=== PATIENT | female | born 1940 | race Caucasian/White ===

== ENCOUNTER → 2017-10-02 08:39 | Outpatient (POV) | payer MEDICARE, SELFPAY ==
--- NOTE | 2017-10-02 10:00 | XR_ITS ---
XR chest 2V HISTORY: ITS.REASON: COPD ORDERING PHYSICIAN: Anil Adrian MD PATIENT AGE: 77 years COMPARISON: None available FINDINGS: Unremarkable cardiovascular structures. There are emphysematous changes with hyperlucency in the upper lobes. No lobar consolidation or collapse. There is mild lower thoracic scoliosis convex left. IMPRESSION: Moderate to severe emphysematous changes
[2017-10-02 10:01] LABS: Basophils % 0.6 % (0.1-2.0); Eosinophils # 0.2 K/mm3 (0.0-0.4); Eosinophils % 2.1 % (0.1-12.0); Hematocrit 37.5 % (37.0-47.0); Hemoglobin 11.2 g/dL (12.2-16.2); Lymphocytes # 2.1 K/mm3 (0.7-4.5); Lymphocytes % 27.8 K/mm3 (10-50); Mean Corpuscular Hemoglobin 24.2 pg (27.0-31.2); Mean Corpuscular Volume 80.5 fl (81-99); Mean Platelet Volume 7.1 fl (7.4-10.4); Monocytes # 0.5 K/mm3 (0.1-1.0); Monocytes % 6.4 % (1.7-9.3); Neutrophils # 4.7 K/mm3 (1.8-7.8); Platelet Count 217 K/mm3 (142-424); Red Blood Count 4.65 M/mm3 (4.20-5.40); Red Cell Distribution Width 15.7 % (11.5-17.5); White Blood Count 7.5 K/mm3 (4.8-10.8)
[2017-10-02 10:48] LABS: Alanine Aminotransferase 18 U/L (12-78); Albumin Level 3.5 gm/dL (3.4-5.0); Alkaline Phosphatase 166 U/L (46-116); Anion Gap 17.3 mEq/L (5-15); Aspartate Amino Transferase 11 U/L (15-37); Bilirubin,Total 0.2 mg/dL (0.2-1.0); Blood Urea Nitrogen 31 mg/dL (7-18); Calcium 8.9 mg/dL (8.5-10.1); Carbon Dioxide 22 mmol/L (21.0-32.0); Chloride 110 mmol/L (98-107); Creatinine,Serum 1.27 mg/dL (0.55-1.02); Estimated Glomerular Filt Rate 41 ml/min (>60); GFR (African American) 50 ML/MIN (>60); Globulin 3.4 gm/dl (1.3-3.2); Glucose 96 mg/dL (74-106); Potassium 4.3 mmoL/L (3.5-5.1); Sodium 145 mmol/L (136-145); Total Protein,Serum 6.9 gm/dL (6.4-8.2)
== END ==
PROVIDERS: Visit Provider Internal Medicine
DX: J43.1 Panlobular emphysema (principal); J96.10 Chronic respiratory failure, unspecified whether with hypoxia or hypercapnia
CPT/HCPCS: 36415; 71046; 80053; 85025

== ENCOUNTER → 2018-04-09 09:20 | Outpatient (POV) | payer MEDICARE, SELFPAY | PROVIDERS: Visit Provider Internal Medicine | DX: Z00.00 Encounter for general adult medical examination without abnormal findings (principal) ==

== ENCOUNTER → 2018-07-04 12:05 | Outpatient (CLI) | payer MEDICARE, SELFPAY ==
[2018-07-04 13:29] VITALS: BP 147/86; PULSE 95; PULSE 96; RESP 18; RESP 24; O2SAT 84; O2SAT 96
== END ==
PROVIDERS: PCP Family Medicine; Visit Provider Internal Medicine
DX: J44.9 Chronic obstructive pulmonary disease, unspecified (principal); J96.10 Chronic respiratory failure, unspecified whether with hypoxia or hypercapnia
CPT/HCPCS: 94618

== ENCOUNTER → 2018-09-03 15:17 | Outpatient (POV) | payer MEDICARE, SELFPAY ==
--- NOTE | 2018-09-03 17:09 | XR_ITS ---
XR chest 2V HISTORY: COPD, cough, shortness of air, history of smoking ITS.REASON: COPD ORDERING PHYSICIAN: Anil Adrian MD PATIENT AGE: 78 years COMPARISON: 10/02/2017 FINDINGS: Unremarkable cardiovascular structures. There are emphysematous changes with bullous change in the upper lobes right more severe than left along with fibrotic change in the right midlung. Chronic changes are present in the lower lobes with some increased density in the right lower lobe which may be due to superimposed pneumonia. Lower thoracic scoliosis convex left. IMPRESSION: Emphysema with bullous changes with possible superimposed pneumonia in the right lower lobe
[2018-09-03 20:02] LABS: Alanine Aminotransferase 16 U/L (12-78); Albumin Level 3.6 gm/dL (3.4-5.0); Albumin/Globulin Ratio 1.1 (1.1-1.8); Alkaline Phosphatase 128 U/L (46-116); Anion Gap 13.5 mEq/L (5-15); Aspartate Amino Transferase 7 U/L (15-37); Bilirubin,Total 0.3 mg/dL (0.2-1.0); Blood Urea Nitrogen 36 mg/dL (7-18); Calcium 9.2 mg/dL (8.5-10.1); Carbon Dioxide 27 mmol/L (21.0-32.0); Chloride 108 mmol/L (98-107); Creatinine,Serum 1.23 mg/dL (0.55-1.02); Estimated Glomerular Filt Rate 42 ml/min (>60); GFR (African American) 51 ML/MIN (>60); Globulin 3.4 gm/dl (1.3-3.2); Glucose 120 mg/dL (74-106); Potassium 4.5 mmoL/L (3.5-5.1); Sodium 144 mmol/L (136-145)
== END ==
PROVIDERS: Visit Provider Internal Medicine
DX: R07.9 Chest pain, unspecified (principal); J44.9 Chronic obstructive pulmonary disease, unspecified; J96.10 Chronic respiratory failure, unspecified whether with hypoxia or hypercapnia
CPT/HCPCS: 36415; 71046; 80053; 93005

== ENCOUNTER → 2018-09-06 07:26 | Outpatient (CLI) | payer MEDICARE, SELFPAY ==
[2018-09-06 08:23] VITALS: PULSE 74
[2018-09-06 08:45] VITALS: BP 148/81; PULSE 95; RESP 16; O2SAT 87
[2018-09-06 09:05] VITALS: BP 144/85; PULSE 113; RESP 22; O2SAT 96
== END ==
PROVIDERS: PCP Family Medicine; Visit Provider Internal Medicine
DX: J44.9 Chronic obstructive pulmonary disease, unspecified (principal); R06.02 Shortness of breath
CPT/HCPCS: 94060; 94618; 94640; 94726; 94729

== ENCOUNTER → 2018-10-11 10:23 | Outpatient (CLI) | payer MEDICARE, SELFPAY | PROVIDERS: PCP Family Medicine; Visit Provider Internal Medicine Cardiovascular Disease | DX: I27.20 Pulmonary hypertension, unspecified (principal); I72.9 Aneurysm of unspecified site; I77.0 Arteriovenous fistula, acquired; I97.89 Other postprocedural complications and disorders of the circulatory system, not elsewhere classified; J43.1 Panlobular emphysema; J96.10 Chronic respiratory failure, unspecified whether with hypoxia or hypercapnia; R07.9 Chest pain, unspecified; Z51.5 Encounter for palliative care; Z87.891 Personal history of nicotine dependence | CPT/HCPCS: 93926 ==

== ENCOUNTER → 2018-12-10 09:43 | Outpatient (POV) | payer MEDICARE, SELFPAY | PROVIDERS: Visit Provider Internal Medicine | DX: Z00.00 Encounter for general adult medical examination without abnormal findings (principal) ==

== ENCOUNTER 2018-12-10 10:21 | Observation (INO) ==
[2018-12-10 10:43] LABS: ABG Base Excess -0.6 mmol/L (-2.4-2.3); ABG Oxygen Saturation 97 % (90-100); ABG PCO2 38.3 mmhg (35.0-45.0); ABG PH 7.42 mmol/L (7.35-7.45); ABG PO2 88.9 mmhg (80-100); ABG TCO2 25.2 mmhg (23-27)
[2018-12-10 10:45] LABS: Basophils % 0.4 % (0.1-2.0); Eosinophils # 0.1 K/mm3 (0.0-0.4); Eosinophils % 0.5 % (0.1-12.0); Hematocrit 34.8 % (37.0-47.0); Hemoglobin 11.2 g/dL (12.2-16.2); Lymphocytes # 1.4 K/mm3 (0.7-4.5); Lymphocytes % 13.2 % (10-50); Mean Corpuscular HGB Conc 32.3 g/dL (31.8-35.4); Mean Corpuscular Hemoglobin 25.7 pg (27.0-31.2); Mean Corpuscular Volume 79.6 fl (81-99); Mean Platelet Volume 7.4 fl (7.4-10.4); Monocytes # 0.6 K/mm3 (0.1-1.0); Monocytes % 5.9 % (1.7-9.3); Neutrophils # 8.3 K/mm3 (1.8-7.8); Platelet Count 240 K/mm3 (142-424); Red Blood Count 4.37 M/mm3 (4.20-5.40); White Blood Count 10.4 K/mm3 (4.8-10.8)
--- NOTE | 2018-12-10 10:45 | Emergency Department Note ---
ED Disposition Clinical Impression: COPD exacerbation Disposition: Admitted as Observation Condition on Discharge: Fair - Critical Care Critical Care Time: No Attestation: On 12/10/18, the high probability of a clinically significant, sudden or life threatening deterioration of the following system(s) required my full and direct attention, intervention and personal management. The time I documented below is in addition to time spent performing reported procedures but includes the following listed in this critical care notation. Medical Decision Making - Dayo Inquiry Pt receiving controlled substance: No Vital Signs: 12/10/18 10:22 12/10/18 11:05 12/10/18 12:21 Temperature 98.2 F Temperature Source Oral Pulse Rate [Right Brachial] 112 H 100 H 94 H Respiratory Rate 18 Blood Pressure [Right Arm] 137/67 125/68 125/58 L Blood Pressure Mean [Right Arm] 90 87 80 Blood Pressure Source [Right Arm] Automatic Cuff Blood Pressure Position [Right Arm] Sitting 02 Sat by Pulse Oximetry 96 97 97 Oxygen Delivery Method Nasal Cannula Oxygen Flow Rate (LPM) 3 - Lab Data Lab Results 12/10/18 10:30: WBC 10.4, RBC 4.37, Hgb 11.2 L, Hct 34.8 L, MCV 79.6 L, MCH 25.7 L, MCHC 32.3, RDW 15.0, Plt Count 240, MPV 7.4, Neut % (Auto) 80.0, Lymph % (Auto) 13.2, [place] % (Auto) 5.9, Eos % (Auto) 0.5, Baso % (Auto) 0.4, Neut # (Auto) 8.3 H, Lymph # (Auto) 1.4, [place] # (Auto) 0.6, Eos # (Auto) 0.1, Baso # (Auto) 0.0 12/10/18 10:30: Sodium 144, Potassium 3.0 L, Chloride 106, Carbon Dioxide 26, Anion Gap 15.0, BUN 23 H, Creatinine 1.13 H, Estimated Creat Clear 46, Estimated GFR 47 L, Est GFR ( Amer) 56 L, Glucose 132 H, Calcium 8.9, Total Bilirubin 0.4, AST 9 L, ALT 20, Alkaline Phosphatase 117 H, Troponin I < 0.02, Total Protein 7.0, Albumin 3.0 L, Globulin 4.0 H, Albumin/Globulin Ratio 0.8 L 12/10/18 10:30: Lactate 2.0 12/10/18 10:30: D-Dimer 398 12/10/18 10:35: Specimen Source L brachial, O2 % 3lpm, ABG pH 7.42, ABG pCO2 38.3, ABG pO2 88.9, ABG HCO3 24.0, ABG Total CO2 25.2, ABG O2 Saturation 97, ABG Base Excess -0.6 Result diagrams: 12/10/18 10:30 12/10/18 10:30 Orders (Tests/Meds): ED MEDICATIONS Generic Name Dose Route Start Last Admin Trade Name Freq PRN Reason Stop Dose Admin Acetaminophen 650 mg 12/10/18 12:31 Acetaminophen 325mg Tab PO 01/09/19 12:30 Q4HP PRN As Needed for Fever or Pain Albuterol/Ipratropium 3 ml 12/10/18 14:00 Duoneb 3ml Neb IH 01/09/19 13:59 QIDRT ISR[place]EL Ceftriaxone Sodium 1 gm/ 50 mls @ 100 mls/hr 12/11/18 12:15 Sodium Chloride IV 12/24/18 12:14 Q24H [place] Protocol Methylprednisolone Sodium Succinate 80 mg 12/10/18 12:31 Solu-Medrol 125mg/2ml Vial IV 01/09/19 12:30 Q8H [place] Non-Formulary Medication 10 mg 12/11/18 09:00 Escitalopram Oxalate PO 01/10/19 08:59 DAILY [place] Non-Formulary Medication 75 mcg 12/11/18 09:00 Levothyroxine Sodium [Tirosint] PO 01/10/19 08:59 DAILY [place] Non-Formulary Medication 290 mcg 12/11/18 09:00 Linaclotide [Linzess] PO 01/10/19 08:59 DAILY [place] Non-Formulary Medication 20 mg 12/11/18 09:00 Omeprazole [Omeprazole 20mg Capsule] PO 01/10/19 08:59 DAILY [place] Non-Formulary Medication 500 mcg 12/11/18 09:00 Roflumilast [Daliresp] PO 01/10/19 08:59 DAILY [place] Non-Formulary Medication 8 mcg 12/10/18 21:00 Lubiprostone [Amitiza] PO 01/09/19 20:59 BID ISR[place]EL Spironolactone 25 mg 12/11/18 09:00 Aldactone 25mg Tablet PO 01/10/19 08:59 DAILY [place] Discontinued Medications Generic Name Dose Route Start Last Admin Trade Name Eusebio PRN Reason Stop Dose Admin Albuterol/Ipratropium 3 ml 12/10/18 14:00 Duoneb 3ml [facility] 01/09/19 13:59 QIDRT [place] Albuterol/Ipratropium 3 ml 12/10/18 11:14 12/10/18 11:14 Duoneb 3ml [facility] 12/10/18 11:15 3 ml ONCE ONE Administration Ceftriaxone Sodium 1 gm/ 50 mls @ 100 mls/hr 12/10/18 12:15 Sodium Chloride IV 12/24/18 12:14 Q24H [facility] Protocol Methylprednisolone Sodium Succinate 125 mg 12/10/18 11:03 12/10/18 11:13 Solu-Medrol 125mg/2ml Vial IV 12/10/18 11:04 125 mg ONCE ONE Administration Potassium Chloride 40 meq 12/10/18 11:32 12/10/18 11:59 Klor-Con 20meq Tablet PO 12/10/18 11:33 40 meq ONCE ONE Administration ORDERS Category Date Time Status Diarrhea 23 Panel, PCR Stat Lab 12/10/18 11:05 Ordered Blood Culture Stat Micro 12/10/18 10:30 Received - Radiology Data #1 Image(s): Chest Image Reviewed: Yes I reviewed the patient's radiology image COPD with fibrotic changes in the bases, emphysematous bullous changes in the apices. - ECG Data Tracing #1 EKG interpreted by Corbin Holt MD: Rhythm: sinus Rate: 96 [place]: normal Ectopy: none Conduction: normal ST Segment Changes: none T Wave Changes: none Q Waves: none No evidence of acute ischemia or injury Low voltage QRS - Physician Consults Physician Consulted: Marty Time: 12:14 Reason -: Admission Comment/Response: Agrees to admit the patient to the hospital. We discussed the patient's clinical information, including history, exam, laboratory and radiology results and ED course. Per hospital procedure, I will write temporary bridge inpatient orders on the patient. Specific orders requested by the admitting physician: Rocephin, steroids, nebulizer treatments, cardiology consult Medical Decision Narrative: Dr. Nicole's office note from today reviewed. The patient has had increasing dyspnea on exertion for the past 3 months. He sent her to Dr. Amaya for cardiology evaluation, she had an echocardiogram and cardiac catheterization with no significant findings. General Adult HPI - General Chief complaint: Shortness of Breath/Dyspnea Stated complaint: shortness of air while at lung dr's Time Seen by Provider: 12/10/18 10:55 Mode of Arrival: Wheelchair Limitations: No Limitations Description of Symptoms (Recalled from ER Triage Doc. by RN): pt was seeing dr nicole (pulmonology) for a q6m appt previously scheduled. her oxygen saturation was 76%-dora on 3 lpm per web press operator assistant report. noted pt to alert, pink, with incr respirations. family says recently copd'd exacerbated - History of Present Illness HPI narrative: Patient and family state that she has been sick for 4 weeks. She has a persistent cough. White to yellow. She has had sinus problems. She has dyspnea on exertion with drop in oxygen saturation when she ambulates. She has seen her primary care doctor for times, Dr. Su in [place]. She has been on antibiotics and steroids and has not improved. She finished steroids last week and has one antibiotic pill left. Denies fever. Denies chest pain. She has had headaches. She has developed diarrhea in the past 4 days. She is on oxygen 3 L continuously. She does not have a nebulizer at home and does not use BiPAP. She has severe COPD. She sees Dr. Nicole for pulmonology. She was seeing him today and after ambulating into his office she had a pulse ox of 76% on oxygen. He sent her to the emergency room. He recommends admission. He recommends work-up for PE. - Related Data Home Medications Medication Instructions Recorded Confirmed albuterol sulfate HFA 90 2 puff INHALATION Q6H PRN 09/13/18 10/11/18 mcg/actuation aerosol inhaler escitalopram 10 mg tablet 10 mg PO DAILY 09/13/18 10/11/18 fluticasone fur. 100 mcg-umeclid 1 inh INHALATION DAILY 09/13/18 10/11/18 62.5 mcg-vilant 25 mcg inhalat.powder hydroxyzine HCl 25 mg tablet 25 mg PO QID PRN 09/13/18 10/11/18 levothyroxine 75 mcg capsule 75 mcg PO DAILY 09/13/18 10/11/18 linaclotide 290 mcg capsule 290 mcg PO DAILY 09/13/18 10/11/18 lubiprostone 8 mcg capsule 8 mcg PO BID 09/13/18 10/11/18 omeprazole 20 mg capsule,delayed 20 mg PO DAILY 09/13/18 10/11/18 release roflumilast 500 mcg tablet 500 mcg PO DAILY 09/13/18 10/11/18 Previous Rx's Medication Instructions Recorded spironolactone 25 mg tablet 25 mg PO DAILY #30 tab 10/11/18 Allergies Allergy/AdvReac Type Severity Reaction Status Date / Time No Known Allergies Allergy Verified 10/11/18 09:38 [facility] History - Hepatitis A Screen Drug use history?: No High risk sexual behaviors?: No History of sexually transmitted infection?: No Currently employed?: No Childcare worker?: No Do you have indoor plumbing?: Yes Do you have electricity?: Yes Attestation statement:: This patient has been screened for Hepatitis A risk factors. I have reviewed the patient's past medical history: Yes Medical History: Reports:: Anxiety, Chronic Obstructive Pulmonary Disease (COPD) Denies:: Seizures Other Medical History: Reports: Hypothyroidism Other Surgeries: Yes: Cardiac Catheterization, Cholecystectomy, Hysterectomy- Total Amputation: No Fractures: No - Social History Smoking Status: Former smoker Tobacco Type: cigarettes Alcohol Intake: never Substance Use Type: denies use Occupational Status: retired Household Members: spouse - Psychiatric History Pschychiatric History:: Reports:: Anxiety ROS Obtained: Yes All systems reviewed & no additional complaints - Constitutional Constitutional: Denies fever(s) - ENT Ears, Nose, Mouth, and Throat: Reports as per HPI - Cardiovascular Cardiovascular: Denies chest pain - Respiratory Respiratory: Yes cough, Yes dyspnea, Yes dyspnea on exertion, Yes wheezing - Gastrointestinal Gastrointestingal: Reports: diarrhea - Neurologic Neurologic: Reports headache(s) Physical Exam - General General appearance: alert, in no apparent distress - Head Head exam: atraumatic, normocephalic - Eye Eye exam: Present: normal appearance, EOMI - ENT ENT exam: Present: mucous membranes moist - Neck Neck exam: Present: normal inspection, trachea midline - Chest Chest inspection: Present: normal inspection, symmetric chest wall rise - Respiratory Respiratory exam: Present: wheezes - Cardiovascular Cardiovascular exam: Present: normal rhythm, tachycardia, normal heart sounds - Abdominal Exam Abdominal exam: Present: soft. Absent: distention, tenderness - Extremities Exam Extremities exam: Present: normal inspection. Absent: pedal edema - Neurological Exam Neurological exam: Present: alert, oriented X3 - Psychiatric Psychiatric exam: Present: normal affect, normal mood - Skin Skin exam: Present: warm, dry
[2018-12-10 10:46] LABS: Oxygen 3LPM %
[2018-12-10 10:54] LABS: Chloride 106 mmol/L (98-107)
[2018-12-10 11:12] LABS: Alanine Aminotransferase 20 U/L (12-78); Albumin/Globulin Ratio 0.8 (1.1-1.8); Alkaline Phosphatase 117 U/L (46-116); Aspartate Amino Transferase 9 U/L (15-37); Bilirubin,Total 0.4 mg/dL (0.2-1.0); Blood Urea Nitrogen 23 mg/dL (7-18); Calcium 8.9 mg/dL (8.5-10.1); Carbon Dioxide 26 mmol/L (21.0-32.0); Glucose 132 mg/dL (74-106); Sodium 144 mmol/L (136-145)
--- NOTE | 2018-12-10 15:08 | Pharmacy Consult Notes ---
[facility] VTE Monitoring - Patient Demographics Admission date: 12/10/18 Report Date: 12/10/18 Time: 15:08 Allergies/Adverse Reactions: Patient Allergies No Known Allergies Allergy (Verified 10/11/18 09:38) Height: 1.75 m Weight: 72.206 kg Patient Problems: Current Active Problems (Updated 12/10/18 @ 12:16 by Corbin Holt MD) COPD exacerbation (Acute) - VTE Risk Labs: VTE Related Lab Results Hgb 11.2 g/dL (12.2-16.2) L 12/10/18 10:30 Hct 34.8 % (37.0-47.0) L 12/10/18 10:30 Plt Count 240 K/mm3 (142-424) 12/10/18 10:30 BUN 23 mg/dL (7-18) H 12/10/18 10:30 Creatinine 1.13 mg/dL (0.55-1.02) H 12/10/18 10:30 Estimated Creat Clear 46 mL/min (50-200) 12/10/18 10:30 Was VTE Risk Assessment Performed: Yes VTE Score: 3 VTE Risk Level: Low Risk - Prophylaxis VTE Prophylaxis Ordered?: Yes Types of VTE Prophylaxis: TEDS Knee High Location of Applied Device: Bilateral Lower Extremeties - VTE Diagnosis Confirmed Treatment or plan recommended: Continue Current Treatment
--- NOTE | 2018-12-10 18:22 | Progress Note ---
Internal Medicine - PN: Subj *Date: 12/10/18 *Time: 18:18 Interval history: This 78-year-old white female was seen and examined on this admission this evening. She was admitted through the emergency room after being seen by Dr. Adrian in pulmonary clinic. She has known chronic lung disease. Her exertional dyspnea is severe. Dr. Adrian felt that she needed additional evaluation and recommended that she go through the emergency room for possible admission and additional detailed evaluation. He had some concerns about pulmonary embolism. D-dimer was negative in the emergency room. Patient has had previous heart catheterizations and echoes. She uses trilogy inhaler. She uses a rescue inhaler. The patient was a premature weighing about 3 pounds. Apparently she had a lot of initial difficulties due to her prematurity. She was a twin and her twin but she survived. The patient does have some past smoking history. Exam Vital signs and Labs for Last 24 Hours: Temp Pulse Resp BP Pulse Ox 98.3 F 118 H 20 143/68 H 93 L 12/10/18 16:00 12/10/18 16:00 12/10/18 16:00 12/10/18 16:00 12/10/18 16:19 Laboratory Results - last 24 hr 12/10/18 10:30: WBC 10.4, RBC 4.37, Hgb 11.2 L, Hct 34.8 L, MCV 79.6 L, MCH 25.7 L, MCHC 32.3, RDW 15.0, Plt Count 240, MPV 7.4, Neut % (Auto) 80.0, Lymph % (Auto) 13.2, [place] % (Auto) 5.9, Eos % (Auto) 0.5, Baso % (Auto) 0.4, Neut # (Auto) 8.3 H, Lymph # (Auto) 1.4, [place] # (Auto) 0.6, Eos # (Auto) 0.1, Baso # (Auto) 0.0 12/10/18 10:30: Sodium 144, Potassium 3.0 L, Chloride 106, Carbon Dioxide 26, Anion Gap 15.0, BUN 23 H, Creatinine 1.13 H, Estimated Creat Clear 46, Estimated GFR 47 L, Est GFR ( Amer) 56 L, Glucose 132 H, Calcium 8.9, Total Bilirubin 0.4, AST 9 L, ALT 20, Alkaline Phosphatase 117 H, Troponin I < 0.02, Total Protein 7.0, Albumin 3.0 L, Globulin 4.0 H, Albumin/Globulin Ratio 0.8 L 12/10/18 10:30: Lactate 2.0 12/10/18 10:30: D-Dimer 398 12/10/18 10:35: Specimen Source L brachial, O2 % 3lpm, ABG pH 7.42, ABG pCO2 38.3, ABG pO2 88.9, ABG HCO3 24.0, ABG Total CO2 25.2, ABG O2 Saturation 97, ABG Base Excess -0.6 I & O for Last 24 hours: Intake & Output 12/08/18 12/09/18 12/10/18 12/11/18 11:59 11:59 11:59 11:59 Intake Total 575 / 575 Balance 575 / 575 Weight 153 lb 159 lb 3 oz - Constitutional no acute distress Comments: She is talkative but has some shortness of breath. - *Routine HEENT Exam Head: Present: normocephalic Eye: Present: PERRL ENT: Present: mucous membranes moist - *Routine Respiratory Exam Present: decreased breath sounds. Absent: rales, rhonchi, wheezes - *Routine Cardiovascular Exam Present: tachycardia (Sinus at 120) - *Routine Abdominal Exam Present: soft. Absent: tenderness - *Routine Extremities Exam Absent: edema - *Routine Neurological Exam Present: alert, oriented X3 Assessment and Plan - Assessment and plan all Dx Assessment and Plan for all problems:: 1. COPD with exacerbation 2. Exertional dyspnea Plan: See orders. D-dimer was negative. She was to have cardiac consultation but this is not yet been accomplished. She will be placed on telemetry. She will receive IV steroids.
--- NOTE | 2018-12-10 18:31 | History & Physical Report ---
*Admission Date: 12/10/18 *Chief complaint: Cough and shortness of breath *History of present illness: is a 78-year-old female with a history of hypertension, oxygen dependent chronic lung issues, chest pain, GERD, and allergies who has not felt well for several weeks. She has had persistent drainage and a cough. She denies having a fever. She had chest pain in September 2018 and was admitted at that time at which time she had a cardiac catheterization per Dr. Amaya which revealed normal coronary arteries. She also notes that she has been on 3 courses of antibiotics within the last 3 months without improvement as per her primary care physician, Dr. Su, in [facility]. She completed the steroids last week with one antibiotic pill left. She also describes headaches. She has developed diarrhea in the past 4 days which she attributes to the antibiotics.. She states she is always short of breath but now has difficulty with just walking to the bathroom. She usually wears oxygen at 3 L/min per nasal cannula. She is unable to do housework and any activities of daily li ving. She states her cough has gotten worse and is productive of white and yellow sputum. She has ongoing sinus problems with the drainage. She was seen by Dr. Adrian and clinic today. After ambulating into his office she had a pulse ox of 76% on oxygen. He sent her to the emergency room with thoughts of cardiology consultation and a PE work-up. In the emergency room she was given IV Solu-Medrol, started on Rocephin, given a neb treatment and admitted for further evaluation and treatment. D-dimer in the emergency room was negative. At the time of this exam patient is sitting on the side of the bed and appears comfortable. She denies chest pain. [facility] History Medical History: Reports:: Anxiety, Chronic Obstructive Pulmonary Disease (COPD), Gastroesophageal Reflux Disease(GERD), Home Oxygen, Lung Disease, Renal Insufficiency Denies:: Cancer, Coronary Artery Disease, Deep Vein Thrombosis, Diabetes Mellitus Type 1, Diabetes Mellitus Type 2, MRSA, Myocardial Infarction, Seizures *Have you ever received a pneumonia vaccine?: Yes *Have you received a flu vaccine this season?: Yes Other Medical History: Reports: Hypothyroidism Other Surgeries: Yes: Cardiac Catheterization, Cholecystectomy, Hysterectomy- Total Amputation: No Fractures: No - *Social History Educational Level: Attended [employer] Smoking Status: Former smoker Tobacco Type: cigarettes # Packs/Day (cigarettes): 1 Smoking End Date: 07/16/1999 Alcohol Intake: never Substance Use Type: denies use *Occupational Status:: retired Housing: house Household Members: spouse *Travel in the last 8 weeks: None - Psychiatric History Expresses thoughts of harming self/others: None Suicide Plan Description: No Plan Pschychiatric History:: Reports:: Anxiety Family Hx:: Coronary Artery Disease Review of Systems - Constitutional Reports body ache(s), Reports headache(s), Denies fever(s) - Eyes Denies change in vision - ENT Reports dizziness, Reports headache(s), Reports nasal congestion, Reports nasal discharge, Reports post nasal drip, Reports sinus pain, Reports dizziness, Denies ear pain, Denies sore throat - *Cardiovascular Reports chest pain, Reports chest pain at rest, Reports chest pain with activity, Reports shortness of breath, Reports shortness of breath with activity, Reports lightheadedness, Reports rapid, pounding, or irregular heartbeat, Denies generalized swelling, Denies irregular heart rhythm - *Respiratory Reports cough, Reports shortness of breath, Denies excessive phlegm production, Denies coughing up blood - *Gastrointestinal Reports change in bowel habits, Reports loose stools (Loose stools attributed to antibiotics), Reports heartburn, Denies abdominal pain, Denies incontinent of stools, Denies vomiting blood, Denies bright, red blood in stools, Denies black, tarry stools, Denies nausea, Denies vomiting - *Genitourinary Denies difficulty urinating - *Musculoskeletal Reports joint pain (Right knee) - *Neurologic Reports dizziness, Reports headache(s), Denies confusion, Denies seizure-like activity Meds Home Medications Medication Instructions Recorded Confirmed Type albuterol sulfate HFA 90 2 puff INHALATION Q6H PRN 09/13/18 12/10/18 History mcg/actuation aerosol inhaler escitalopram 10 mg tablet 10 mg PO DAILY 09/13/18 12/10/18 History fluticasone fur. 100 mcg-umeclid 1 inh INHALATION DAILY 09/13/18 12/10/18 History 62.5 mcg-vilant 25 mcg inhalat.powder hydroxyzine HCl 25 mg tablet 25 mg PO QID PRN 09/13/18 12/10/18 History levothyroxine 75 mcg capsule 75 mcg PO DAILY 09/13/18 12/10/18 History linaclotide 290 mcg capsule 290 mcg PO DAILY 09/13/18 12/10/18 History lubiprostone 8 mcg capsule 8 mcg PO BID 09/13/18 12/10/18 History omeprazole 20 mg capsule,delayed 20 mg PO DAILY 09/13/18 12/10/18 History release roflumilast 500 mcg tablet 500 mcg PO DAILY 09/13/18 12/10/18 History spironolactone 25 mg tablet 25 mg PO DAILY #30 tab 10/11/18 12/10/18 Rx Allergies Allergy/AdvReac Type Severity Reaction Status Date / Time No Known Allergies Allergy Verified 10/11/18 09:38 Exam Vital signs and Labs for Last 24 Hours: Temp Pulse Resp BP Pulse Ox 98.3 F 118 H 20 143/68 H 93 L 12/10/18 16:00 12/10/18 16:00 12/10/18 16:00 12/10/18 16:00 12/10/18 16:19 Laboratory Results - last 24 hr 12/10/18 10:30: WBC 10.4, RBC 4.37, Hgb 11.2 L, Hct 34.8 L, MCV 79.6 L, MCH 25.7 L, MCHC 32.3, RDW 15.0, Plt Count 240, MPV 7.4, Neut % (Auto) 80.0, Lymph % (Auto) 13.2, [place] % (Auto) 5.9, Eos % (Auto) 0.5, Baso % (Auto) 0.4, Neut # (Auto) 8.3 H, Lymph # (Auto) 1.4, [place] # (Auto) 0.6, Eos # (Auto) 0.1, Baso # (Auto) 0.0 12/10/18 10:30: Sodium 144, Potassium 3.0 L, Chloride 106, Carbon Dioxide 26, Anion Gap 15.0, BUN 23 H, Creatinine 1.13 H, Estimated Creat Clear 46, Estimated GFR 47 L, Est GFR ( Amer) 56 L, Glucose 132 H, Calcium 8.9, Total Bilirubin 0.4, AST 9 L, ALT 20, Alkaline Phosphatase 117 H, Troponin I < 0.02, Total Protein 7.0, Albumin 3.0 L, Globulin 4.0 H, Albumin/Globulin Ratio 0.8 L 12/10/18 10:30: Lactate 2.0 12/10/18 10:30: D-Dimer 398 12/10/18 10:35: Specimen Source L brachial, O2 % 3lpm, ABG pH 7.42, ABG pCO2 38.3, ABG pO2 88.9, ABG HCO3 24.0, ABG Total CO2 25.2, ABG O2 Saturation 97, ABG Base Excess -0.6 I & O for Last 24 hours: Intake & Output 12/08/18 12/09/18 12/10/18 12/11/18 11:59 11:59 11:59 11:59 Intake Total 575 / 575 Balance 575 / 575 Weight 153 lb 159 lb 3 oz Radiology Reports for the Last 24 Hours: 12/10/2018 chest x-ray IMPRESSION: COPD with bullous emphysematous change. Chronic changes with no acute finding - Constitutional no acute distress Comments: Sitting on bedside and appears comfortable. She is hard of hearing. Very conversant. - *Routine HEENT Exam Head: Present: normocephalic, atraumatic Eye: Present: PERRL. Absent: conjunctival icterus, scleral injection, conjunctivae pink ENT: Present: mucous membranes moist, oropharynx clear - *Routine Neck Exam Present: supple, full ROM. Absent: carotid bruit, lymphadenopathy, thyromegaly - *Routine Respiratory Exam Present: diminished air movement (Throughout). Absent: wheezes - *Routine Cardiovascular Exam Present: RRR - *Routine Abdominal Exam Present: soft, normoactive bowel sounds. Absent: tenderness, distended, guarding - *Routine Extremities Exam Absent: edema, calf tenderness - *Routine Neurological Exam Present: alert, oriented X3, moving all extremities Tremors noted in bilateral hands with purposeful movement Assessment and Plan (1) COPD exacerbation Current visit: Yes Status: Acute Category: Medical Code(s): J44.1 - Chronic obstructive pulmonary disease with (acute) exacerbation (2) GERD (gastroesophageal reflux disease) Current visit: Yes Status: Chronic Category: Medical Code(s): K21.9 - Gastro-esophageal reflux disease without esophagitis (3) Chest pain Current visit: No Status: Acute Qualifiers: Chest pain type: other chest pain Qualified Code(s): R07.89 - Other chest pain; R07.8 - Other chest pain Category: Medical Code(s): R07.9 - Chest pain, unspecified (4) Advanced chronic obstructive pulmonary disease Current visit: No Status: Chronic Category: Medical Code(s): J44.9 - Chronic obstructive pulmonary disease, unspecified (5) Chronic respiratory failure Current visit: No Status: Chronic Qualifiers: Respiratory failure complication: unspecified whether with hypoxia or hypercapnia Qualified Code(s): J96.10 - Chronic respiratory failure, unspecified whether with hypoxia or hypercapnia Category: Medical Code(s): J96.10 - Chronic respiratory failure, unspecified whether with hypoxia or hypercapnia (6) Panlobular emphysema Current visit: No Status: Chronic Category: Medical Code(s): J43.1 - Panlobular emphysema (7) Chronic sinusitis Current visit: Yes Status: Acute Category: Medical Code(s): J32.9 - Chronic sinusitis, unspecified - Assessment and plan all Dx Assessment and Plan for all problems:: Patient has been started on antibiotics, duo nebs, steroids, she has been placed on telemetry to monitor her heart. Cardiology will see her as well.
--- NOTE | 2018-12-11 08:30 | Progress Note ---
Internal Medicine - PN: Subj *Date: 12/11/18 *Time: 08:27 Interval history: Patient states she feels a little bit better today. Her cough is less. She still short of breath with any exertion. Had an increased shortness of breath with walking to the bathroom this morning. She does not want a bedside commode. She did ambulate in the room. She has chest pain when she has these spells. She is eating well without any problems. She is voiding without difficulty. Exam Vital signs and Labs for Last 24 Hours: Temp Pulse Resp BP Pulse Ox 98.2 F 114 H 18 125/66 93 L 12/11/18 07:45 12/11/18 07:45 12/11/18 07:45 12/11/18 07:45 12/11/18 07:45 Laboratory Results - last 24 hr 12/10/18 10:30: WBC 10.4, RBC 4.37, Hgb 11.2 L, Hct 34.8 L, MCV 79.6 L, MCH 25.7 L, MCHC 32.3, RDW 15.0, Plt Count 240, MPV 7.4, Neut % (Auto) 80.0, Lymph % (Auto) 13.2, [place] % (Auto) 5.9, Eos % (Auto) 0.5, Baso % (Auto) 0.4, Neut # (Auto) 8.3 H, Lymph # (Auto) 1.4, [place] # (Auto) 0.6, Eos # (Auto) 0.1, Baso # (Auto) 0.0 12/10/18 10:30: Sodium 144, Potassium 3.0 L, Chloride 106, Carbon Dioxide 26, Anion Gap 15.0, BUN 23 H, Creatinine 1.13 H, Estimated Creat Clear 46, Estimated GFR 47 L, Est GFR ( Amer) 56 L, Glucose 132 H, Calcium 8.9, Total Bilirubin 0.4, AST 9 L, ALT 20, Alkaline Phosphatase 117 H, Troponin I < 0.02, Total Protein 7.0, Albumin 3.0 L, Globulin 4.0 H, Albumin/Globulin Ratio 0.8 L 12/10/18 10:30: Lactate 2.0 12/10/18 10:30: D-Dimer 398 12/10/18 10:35: Specimen Source L brachial, O2 % 3lpm, ABG pH 7.42, ABG pCO2 38.3, ABG pO2 88.9, ABG HCO3 24.0, ABG Total CO2 25.2, ABG O2 Saturation 97, ABG Base Excess -0.6 I & O for Last 24 hours: Intake & Output 12/08/18 12/09/18 12/10/18 12/11/18 11:59 11:59 11:59 11:59 Intake Total 1195 / 1195 Balance 1195 / 1195 Weight 153 lb 159 lb 1 oz - Constitutional no acute distress Comments: Sitting comfortably in the bed. She does get dyspneic with conversation - *Routine Respiratory Exam Present: diminished air movement (Bilaterally) - *Routine Cardiovascular Exam Present: RRR (Monitor showing sinus tachycardia 100-110) - *Routine Abdominal Exam Present: soft, normoactive bowel sounds. Absent: tenderness - *Routine Extremities Exam Absent: edema Comments: Abrasion on right lower leg appears to be healing - *Routine Neurological Exam Present: alert, oriented X3 Assessment and Plan (1) COPD exacerbation Current visit: Yes Status: Acute Category: Medical Code(s): J44.1 - Chronic obstructive pulmonary disease with (acute) exacerbation (2) GERD (gastroesophageal reflux disease) Current visit: Yes Status: Chronic Category: Medical Code(s): K21.9 - Gastro-esophageal reflux disease without esophagitis (3) Chest pain Current visit: No Status: Acute Qualifiers: Chest pain type: other chest pain Qualified Code(s): R07.89 - Other chest pain; R07.8 - Other chest pain Category: Medical Code(s): R07.9 - Chest pain, unspecified (4) Advanced chronic obstructive pulmonary disease Current visit: No Status: Chronic Category: Medical Code(s): J44.9 - Chronic obstructive pulmonary disease, unspecified (5) Chronic respiratory failure Current visit: No Status: Chronic Qualifiers: Respiratory failure complication: unspecified whether with hypoxia or hypercapnia Qualified Code(s): J96.10 - Chronic respiratory failure, unspecified whether with hypoxia or hypercapnia Category: Medical Code(s): J96.10 - Chronic respiratory failure, unspecified whether with hypoxia or hypercapnia (6) Panlobular emphysema Current visit: No Status: Chronic Category: Medical Code(s): J43.1 - Panlobular emphysema (7) Chronic sinusitis Current visit: Yes Status: Acute Category: Medical Code(s): J32.9 - Chronic sinusitis, unspecified - Assessment and plan all Dx Assessment and Plan for all problems:: Cardiology to see patient today. Continue current care
--- NOTE | 2018-12-11 09:37 | Consult Report ---
History of Present Illness Consult date: 12/11/18 Requesting physician: Godfrey Ferguson Consult reason: shortness of breath Chief complaint: SOA Additional Medical History:: 1. Normal coronary arteries 2. Mild pulmonary hypertension 3. COPD 4. Oxygen dependence 5. Hypothyroidism Echocardiogram October 01, 2018 CONCLUSION: 1. Mild biatrial enlargement, normal left ventricular size, mild concentric left ventricular hypertrophy, visually estimated ejection fraction of 55% with no regional wall motion abnormality, grade 1 diastolic dysfunction seen with tissue Doppler evidence of raised left atrial pressure. 2. Mildly enlarged right ventricle with normal contractility. 3. Mild mitral and tricuspid regurgitation 4. No significant pericardial effusion noted Left cardiac catheterization October 01, 2018 ANGIOGRAPHIC RESULTS: 1. The left main artery normal 2. The left anterior descending artery is normal 3. The circumflex artery is non dominant and is normal 4. The right coronary artery dominant normal 5. The PEREZ ventriculogram reveals normal 65% The left ventricular end-diastolic pressure 10 mmHg HEMODYNAMICS: Right atrial pressure is 5 mm Hg. Pulmonary arterial pressure is 35/12 mm Hg. Pulmonary artery occlusion pressure is 10 mm Hg. SATURATIONS: RA is 66 %. PA is 67 %. IMPRESSION: 1. Normal coronary arteries 2. Normal ejection fraction 3. Normal left ventricular end-diastolic pressure 4. Mild pulmonary artery hypertension PLAN: 1. Medical management 2. Evaluation of noncardiac symptomatology History of present illness: This is a 78-year-old female who was admitted to the hospital with shortness of breath and hypoxemia. The patient was evaluated by Dr. Adrian yesterday in his clinic and after ambulating in his office her oxygen saturation was 76% on oxygen. The patient was sent to the emergency department to have a further work-up of her shortness of breath to rule out PE and any cardiac issues. The patient states that her shortness of breath has been worse the last several months. She has a persistent cough. She states that she has drainage with a cough and is mostly clear. She denies having any fevers or chills associated with her shortness of breath and cough. She states that when she is severely short of breath she does have tightness in the center of her chest associated with the shortness of breath. She states that this does not radiate. She states that this does not occur all the time but only when her shortness of breath is severe. The patient reports that last week she was started on antibiotics per her primary care provider, Dr. Su in [facility]. She reports having headaches and some diarrhea since starting the antibiotics. The patient reports that her shortness of breath or so severe at this point she gets profoundly short of breath just walking to the bathroom which is unusual for her. She reports that she is unable to do any housework or activities of daily living because of her profound shortness of breath. The patient was treated with IV Solu-Medrol, Rocephin and nebulizers. Her d-dimer was negative. The patient has had a left cardiac catheterization which shows normal coronary arteries and mild pulmonary hypertension, which would not explain her symptoms. Her echocardiogram shows a normal ejection fraction and diastolic dysfunction with mild MR. Her symptoms are not cardiac in nature. She denies any fever, chills, nausea, vomiting. She does have some diarrhea as mentioned above. When she is severely short of breath she does states she is unable to lie flat. [facility] History I have reviewed the patient's past medical history: Yes Medical History: Reports:: Anxiety, Chronic Obstructive Pulmonary Disease (COPD), Gastroesophageal Reflux Disease(GERD), Home Oxygen, Lung Disease, Renal Insufficiency Denies:: Cancer, Coronary Artery Disease, Deep Vein Thrombosis, Diabetes Mellitus Type 1, Diabetes Mellitus Type 2, MRSA, Myocardial Infarction, Seizures *Have you ever received a pneumonia vaccine?: Yes *Have you received a flu vaccine this season?: Yes Other Medical History: Reports: Hypothyroidism Other Surgeries: Yes: Cardiac Catheterization, Cholecystectomy, Hysterectomy- Total Amputation: No Fractures: No - *Social History Educational Level: Attended [employer] Smoking Status: Former smoker Tobacco Type: cigarettes # Packs/Day (cigarettes): 1 Smoking End Date: 07/16/1999 Alcohol Intake: never Substance Use Type: denies use *Occupational Status:: retired Housing: house Household Members: spouse *Travel in the last 8 weeks: None - Psychiatric History Expresses thoughts of harming self/others: None Suicide Plan Description: No Plan Pschychiatric History:: Reports:: Anxiety Family Hx:: Coronary Artery Disease Meds Home Medications Medication Instructions Recorded Confirmed Type albuterol sulfate HFA 90 2 puff INHALATION Q6HP PRN 09/13/18 12/11/18 History mcg/actuation aerosol inhaler escitalopram 10 mg tablet 10 mg PO DAILY 09/13/18 12/10/18 History fluticasone fur. 100 mcg-umeclid 1 puff INHALATION DAILY 09/13/18 12/11/18 History 62.5 mcg-vilant 25 mcg inhalat.powder hydroxyzine HCl 25 mg tablet 25 mg PO TIDP PRN 09/13/18 12/11/18 History levothyroxine 75 mcg capsule 75 mcg PO DAILY 09/13/18 12/10/18 History linaclotide 290 mcg capsule 290 mcg PO DAILY 09/13/18 12/10/18 History omeprazole 20 mg capsule,delayed 20 mg PO DAILY 09/13/18 12/10/18 History release roflumilast 500 mcg tablet 500 mcg PO DAILY 09/13/18 12/10/18 History spironolactone 25 mg tablet 25 mg PO DAILY #30 tab 10/11/18 12/10/18 Rx Sertraline HCl [Zoloft 50mg tablet] 50 mg PO DAILY 12/11/18 12/11/18 History Allergies Allergy/AdvReac Type Severity Reaction Status Date / Time No Known Allergies Allergy Verified 10/11/18 09:38 Review of Systems - Review of Systems Review of systems:: pertinent systems reviewed and negative unless documented below - *Cardiovascular Reports chest pain, Reports chest pain at rest, Reports chest pain with activity, Reports shortness of breath, Reports shortness of breath with activity - *Respiratory Reports cough, Reports shortness of breath, Reports shortness of breath with activity, Reports excessive phlegm production, Reports wheezing - *Neurologic Reports dizziness, Reports headache(s), Reports dizziness, Denies confusion, Denies seizure-like activity Exam Vital signs and Labs for Last 24 Hours: Temp Pulse Resp BP Pulse Ox 98.2 F 81 18 125/66 93 L 12/11/18 07:45 12/11/18 09:34 12/11/18 07:45 12/11/18 07:45 12/11/18 07:45 Laboratory Results - last 24 hr 12/10/18 10:30: WBC 10.4, RBC 4.37, Hgb 11.2 L, Hct 34.8 L, MCV 79.6 L, MCH 25.7 L, MCHC 32.3, RDW 15.0, Plt Count 240, MPV 7.4, Neut % (Auto) 80.0, Lymph % (Auto) 13.2, [place] % (Auto) 5.9, Eos % (Auto) 0.5, Baso % (Auto) 0.4, Neut # (Auto) 8.3 H, Lymph # (Auto) 1.4, [place] # (Auto) 0.6, Eos # (Auto) 0.1, Baso # (Auto) 0.0 12/10/18 10:30: Sodium 144, Potassium 3.0 L, Chloride 106, Carbon Dioxide 26, Anion Gap 15.0, BUN 23 H, Creatinine 1.13 H, Estimated Creat Clear 46, Estimated GFR 47 L, Est GFR ( Amer) 56 L, Glucose 132 H, Calcium 8.9, Total Bilirubin 0.4, AST 9 L, ALT 20, Alkaline Phosphatase 117 H, Troponin I < 0.02, Total Protein 7.0, Albumin 3.0 L, Globulin 4.0 H, Albumin/Globulin Ratio 0.8 L 12/10/18 10:30: Lactate 2.0 12/10/18 10:30: D-Dimer 398 12/10/18 10:35: Specimen Source L brachial, O2 % 3lpm, ABG pH 7.42, ABG pCO2 38.3, ABG pO2 88.9, ABG HCO3 24.0, ABG Total CO2 25.2, ABG O2 Saturation 97, ABG Base Excess -0.6 I & O for Last 24 hours: Intake & Output 12/08/18 12/09/18 12/10/18 12/11/18 23:59 23:59 23:59 23:59 Intake Total 575 / 575 620 / 620 Balance 575 / 575 620 / 620 Weight 159 lb 3 oz 159 lb 1 oz Narrative: Her EKG is sinus rhythm with no acute changes. Her telemetry strip shows sinus rhythm with a rate of 86. - Constitutional no acute distress, average body habitus - *Routine HEENT Exam Head: Present: normocephalic, atraumatic Eye: Present: EOMI, PERRL ENT: Present: mucous membranes moist - *Routine Neck Exam Present: supple, full ROM, normal carotid upstroke. Absent: JVD, carotid bruit, lymphadenopathy - *Routine Respiratory Exam Present: prolonged expiratory phase, diminished air movement Comments: Cough - *Routine Cardiovascular Exam Present: RRR, Normal S1, Normal S2. Absent: murmur, gallop - *Routine Abdominal Exam Present: soft, normoactive bowel sounds. Absent: tenderness, distended - *Routine Extremities Exam Present: full ROM, pulses intact, normal capillary refill. Absent: cyanosis, clubbing, edema - *Routine Skin Exam Present: intact, warm. Absent: erythema, rash - *Routine Neurological Exam Present: alert, oriented X3, CN II-XII intact. Absent: sensory deficit, motor deficit - Routine Psychiatric Exam Present: normal affect, normal thought process - Detailed Eye Exam Eyelids: Left normal inspection Assessment and Plan (1) COPD exacerbation Current visit: Yes Status: Acute Category: Medical Code(s): J44.1 - Chronic obstructive pulmonary disease with (acute) exacerbation (2) GERD (gastroesophageal reflux disease) Current visit: Yes Status: Chronic Category: Medical Code(s): K21.9 - Gastro-esophageal reflux disease without esophagitis (3) Chest pain Current visit: No Status: Acute Qualifiers: Chest pain type: other chest pain Qualified Code(s): R07.89 - Other chest pain; R07.8 - Other chest pain Category: Medical Code(s): R07.9 - Chest pain, unspecified (4) Advanced chronic obstructive pulmonary disease Current visit: No Status: Chronic Category: Medical Code(s): J44.9 - Chronic obstructive pulmonary disease, unspecified (5) Chronic respiratory failure Current visit: No Status: Chronic Qualifiers: Respiratory failure complication: unspecified whether with hypoxia or hypercapnia Qualified Code(s): J96.10 - Chronic respiratory failure, unspecified whether with hypoxia or hypercapnia Category: Medical Code(s): J96.10 - Chronic respiratory failure, unspecified whether with hypoxia or hypercapnia (6) Panlobular emphysema Current visit: No Status: Chronic Category: Medical Code(s): J43.1 - Panlobular emphysema (7) Chronic sinusitis Current visit: Yes Status: Acute Category: Medical Code(s): J32.9 - Chronic sinusitis, unspecified (8) Shortness of breath Current visit: Yes Status: Acute Category: Medical Code(s): R06.02 - Shortness of breath (9) Cough productive of clear sputum Current visit: Yes Status: Acute Category: Medical Code(s): R05 - Cough - Assessment and plan all Dx Assessment and Plan for all problems:: Plan: 1. The patient was admitted to the hospital due to shortness of breath and hypoxemia. The patient was evaluated in Dr. Adrian's office yesterday and after walking in his office she was found to have an oxygen saturation of 76% on oxygen. She is normally on 3 L at home. She states that she has been having worsening shortness of breath over the last several months. The patient was sent to the emergency department for further work-up. Her d-dimer was negative. 2. The patient has been worked up by cardiology in September of this year. She has normal coronary arteries and a normal LVEDP. She does have mild pulmonary hypertension, but this would not explain the symptoms that the patient is experiencing. On echocardiogram she had a normal ejection fraction, grade 1 diastolic dysfunction and mild MR. Her profound shortness of breath would not be explained by anything from a cardiac standpoint. Her symptoms are most likely pulmonary in nature and not from a cardiac source as her left and right cardiac catheterization looked pretty good. 3. The patient does have known COPD. This is all most likely from a COPD exacerbation. She does have advanced COPD. She has very little air movement on exam. Will defer management of her shortness of breath and COPD to her primary care provider and Dr. Adrian. 4. She has been started on Solu-Medrol, Rocephin and nebulizers. 5. The patient has normal coronary arteries 6. Her blood pressure is well controlled. 7. Her LDL goal is less than 100. 8. No further recommendations from a cardiac standpoint at this time. Noncardiac sources need further evaluation to explain her symptoms. If the patient's status changes and further cardiac input is needed, Dr. Amaya is available by phone. Thank you for the opportunity to help participate in the care of this patient.
[2018-12-11 10:05] LABS: Anion Gap 16.5 mEq/L (5-15); Calcium 8.8 mg/dL (8.5-10.1); Potassium 3.5 mmoL/L (3.5-5.1)
[2018-12-12 07:09] LABS: Hematocrit 30.3 % (37.0-47.0); Hemoglobin 9.6 g/dL (12.2-16.2); Lymphocytes # 0.7 K/mm3 (0.7-4.5); Lymphocytes % 4.8 % (10-50); Mean Corpuscular HGB Conc 31.9 g/dL (31.8-35.4); Mean Corpuscular Hemoglobin 25.1 pg (27.0-31.2); Mean Corpuscular Volume 78.7 fl (81-99); Mean Platelet Volume 7.8 fl (7.4-10.4); Monocytes # 0.4 K/mm3 (0.1-1.0); Monocytes % 2.6 % (1.7-9.3); Neutrophils # 13.8 K/mm3 (1.8-7.8); Neutrophils % 92.6 % (37.0-80.0); Platelet Count 217 K/mm3 (142-424); Red Blood Count 3.85 M/mm3 (4.20-5.40); Red Cell Distribution Width 15.4 % (11.5-17.5); White Blood Count 14.9 K/mm3 (4.8-10.8)
[2018-12-12 07:27] LABS: Anion Gap 14.3 mEq/L (5-15); Calcium 8.9 mg/dL (8.5-10.1); Potassium 4.3 mmoL/L (3.5-5.1)
[2018-12-12 08:22] LABS: Lymphocytes % 4 % (10-50); Monocytes % 1 % (2-9); Neutrophils % 95 % (42-76); Total Cells Counted 100
--- NOTE | 2018-12-12 08:33 | Progress Note ---
Internal Medicine - PN: Subj *Date: 12/12/18 *Time: 08:29 Interval history: Patient states she is feeling much better this morning. Her cough and shortness of breath have improved. She states she still has some dyspnea with exertion. She slept well last night and ate a good breakfast today. She has had no further chest pain. She is anxious to go home. Exam Vital signs and Labs for Last 24 Hours: Temp Pulse Resp BP Pulse Ox 97.9 F 121 H 18 146/85 H 93 L 12/12/18 08:00 12/12/18 08:00 12/12/18 08:00 12/12/18 08:00 12/12/18 08:00 Laboratory Results - last 24 hr 12/11/18 09:42: Sodium 143, Potassium 3.5, Chloride 108 H, Carbon Dioxide 22, Anion Gap 16.5 H, BUN 35 H D, Creatinine 1.26 H, Estimated Creat Clear 43, Estimated GFR 41 L, Est GFR ( Amer) 50 L, Glucose 129 H, Calcium 8.8 12/12/18 06:45: WBC 14.9 H D, RBC 3.85 L, Hgb 9.6 L, Hct 30.3 L, MCV 78.7 L, MCH 25.1 L, MCHC 31.9, RDW 15.4, Plt Count 217, MPV 7.8, Neut % (Auto) 92.6 H, Lymph % (Auto) 4.8 L, [place] % (Auto) 2.6, Eos % (Auto) 0.0 L, Baso % (Auto) 0.0 L, Neut # (Auto) 13.8 H, Lymph # (Auto) 0.7, [place] # (Auto) 0.4, Eos # (Auto) 0.0, Baso # (Auto) 0.0, Total Counted 100, Neutrophils % (Manual) 95 H, Lymphocytes % (Manual) 4 L, Monocytes % (Manual) 1 L, Platelet Estimate Normal 12/12/18 06:45: Sodium 141, Potassium 4.3 D, Chloride 109 H, Carbon Dioxide 22, Anion Gap 14.3, BUN 39 H, Creatinine 1.06 H, Estimated Creat Clear 54, Estimated GFR 50 L, Est GFR ( Amer) 61 D, Glucose 139 H, Calcium 8.9 I & O for Last 24 hours: Intake & Output 12/09/18 12/10/18 12/11/18 12/12/18 11:59 11:59 11:59 11:59 Intake Total 1195 / 1195 1250 / 1250 Balance 1195 / 1195 1250 / 1250 Weight 153 lb 159 lb 1 oz 169 lb 2 oz - Constitutional no acute distress - *Routine Respiratory Exam Present: decreased breath sounds - *Routine Cardiovascular Exam Present: RRR - *Routine Abdominal Exam Present: soft, normoactive bowel sounds. Absent: tenderness - *Routine Extremities Exam Absent: cyanosis, clubbing, edema Assessment and Plan (1) COPD exacerbation Current visit: Yes Status: Acute Category: Medical Code(s): J44.1 - Chronic obstructive pulmonary disease with (acute) exacerbation (2) GERD (gastroesophageal reflux disease) Current visit: Yes Status: Chronic Category: Medical Code(s): K21.9 - Gastro-esophageal reflux disease without esophagitis (3) Chest pain Current visit: No Status: Acute Qualifiers: Chest pain type: other chest pain Qualified Code(s): R07.89 - Other chest pain; R07.8 - Other chest pain Category: Medical Code(s): R07.9 - Chest pain, unspecified (4) Advanced chronic obstructive pulmonary disease Current visit: No Status: Chronic Category: Medical Code(s): J44.9 - Chronic obstructive pulmonary disease, unspecified (5) Chronic respiratory failure Current visit: No Status: Chronic Qualifiers: Respiratory failure complication: unspecified whether with hypoxia or hypercapnia Qualified Code(s): J96.10 - Chronic respiratory failure, unspecified whether with hypoxia or hypercapnia Category: Medical Code(s): J96.10 - Chronic respiratory failure, unspecified whether with hypoxia or hypercapnia (6) Panlobular emphysema Current visit: No Status: Chronic Category: Medical Code(s): J43.1 - Panlobular emphysema (7) Chronic sinusitis Current visit: Yes Status: Acute Category: Medical Code(s): J32.9 - Chronic sinusitis, unspecified (8) Shortness of breath Current visit: Yes Status: Acute Category: Medical Code(s): R06.02 - Shortness of breath (9) Cough productive of clear sputum Current visit: Yes Status: Acute Category: Medical Code(s): R05 - Cough - Assessment and plan all Dx Assessment and Plan for all problems:: Cardiology note reviewed and they feel the chest pain is pulmonary in nature. The patient has improved and her oxygen is stable on 3 L, which is what she normally has at home. Will discuss further care with Dr. Ferguson.
[2018-12-13 07:37] LABS: Basophils % 0.1 % (0.1-2.0); Eosinophils % 0.1 % (0.1-12.0); Hematocrit 31.6 % (37.0-47.0); Hemoglobin 10.1 g/dL (12.2-16.2); Lymphocytes # 0.8 K/mm3 (0.7-4.5); Lymphocytes % 6.9 % (10-50); Mean Corpuscular HGB Conc 31.8 g/dL (31.8-35.4); Mean Corpuscular Hemoglobin 25.3 pg (27.0-31.2); Mean Corpuscular Volume 79.4 fl (81-99); Mean Platelet Volume 7.4 fl (7.4-10.4); Monocytes # 0.5 K/mm3 (0.1-1.0); Monocytes % 4.3 % (1.7-9.3); Neutrophils # 9.8 K/mm3 (1.8-7.8); Neutrophils % 88.6 % (37.0-80.0); Platelet Count 221 K/mm3 (142-424); Red Blood Count 3.98 M/mm3 (4.20-5.40); Red Cell Distribution Width 15.6 % (11.5-17.5)
[2018-12-13 07:48] LABS: Anion Gap 13.6 mEq/L (5-15); Calcium 8.8 mg/dL (8.5-10.1); Potassium 4.6 mmoL/L (3.5-5.1)
--- NOTE | 2018-12-13 08:22 | Progress Note ---
Internal Medicine - PN: Subj *Date: 12/13/18 *Time: 08:20 Interval history: Patient states she is feeling much better this morning. She has less shaking since her steroids have been weaned and her nebulizer treatments have been changed to Xopenex. She states she is much less short of breath this morning and can actually get up and go to the bathroom without feeling short of breath. She denies any pain and wants to go home today. Exam Vital signs and Labs for Last 24 Hours: Temp Pulse Resp BP Pulse Ox 98.2 F 83 19 127/51 L 97 12/13/18 04:00 12/13/18 06:14 12/13/18 04:00 12/13/18 04:00 12/13/18 06:14 Laboratory Results - last 24 hr 12/12/18 06:45: Total Counted 100, Neutrophils % (Manual) 95 H, Lymphocytes % (Manual) 4 L, Monocytes % (Manual) 1 L, Platelet Estimate Normal 12/13/18 07:12: WBC 11.0 H D, RBC 3.98 L, Hgb 10.1 L, Hct 31.6 L, MCV 79.4 L, MCH 25.3 L, MCHC 31.8, RDW 15.6, Plt Count 221, MPV 7.4, Neut % (Auto) 88.6 H, Lymph % (Auto) 6.9 L, [place] % (Auto) 4.3, Eos % (Auto) 0.1, Baso % (Auto) 0.1, Neut # (Auto) 9.8 H, Lymph # (Auto) 0.8, [place] # (Auto) 0.5, Eos # (Auto) 0.0, Baso # (Auto) 0.0 12/13/18 07:12: Sodium 139, Potassium 4.6, Chloride 107, Carbon Dioxide 23, Anion Gap 13.6, BUN 37 H, Creatinine 1.10 H, Estimated Creat Clear 52, Estimated GFR 48 L, Est GFR ( Amer) 58 L, Glucose 113 H, Calcium 8.8 I & O for Last 24 hours: Intake & Output 12/10/18 12/11/18 12/12/18 12/13/18 11:59 11:59 11:59 11:59 Intake Total 1195 / 1195 1250 / 1250 720 / 720 Balance 1195 / 1195 1250 / 1250 720 / 720 Weight 153 lb 159 lb 1 oz 169 lb 2 oz 169 lb Microbiology Reports for the Last 24 Hours: Microbiology 12/10/18 10:30 Blood Blood Culture - Preliminary NO GROWTH AFTER 48 HOURS 12/10/18 10:30 Blood Blood Culture - Preliminary NO GROWTH AFTER 48 HOURS - Constitutional no acute distress - *Routine Respiratory Exam Present: decreased breath sounds, CTA bilaterally - *Routine Cardiovascular Exam Present: RRR - *Routine Abdominal Exam Present: soft, normoactive bowel sounds. Absent: tenderness - *Routine Extremities Exam Absent: cyanosis, clubbing, edema Assessment and Plan (1) COPD exacerbation Current visit: Yes Status: Acute Category: Medical Code(s): J44.1 - Chronic obstructive pulmonary disease with (acute) exacerbation (2) GERD (gastroesophageal reflux disease) Current visit: Yes Status: Chronic Category: Medical Code(s): K21.9 - Ga stro-esophageal reflux disease without esophagitis (3) Chest pain Current visit: No Status: Acute Qualifiers: Chest pain type: other chest pain Qualified Code(s): R07.89 - Other chest pain; R07.8 - Other chest pain Category: Medical Code(s): R07.9 - Chest pain, unspecified (4) Advanced chronic obstructive pulmonary disease Current visit: No Status: Chronic Category: Medical Code(s): J44.9 - Chronic obstructive pulmonary disease, unspecified (5) Chronic respiratory failure Current visit: No Status: Chronic Qualifiers: Respiratory failure complication: unspecified whether with hypoxia or hypercapnia Qualified Code(s): J96.10 - Chronic respiratory failure, unspecified whether with hypoxia or hypercapnia Category: Medical Code(s): J96.10 - Chronic respiratory failure, unspecified whether with hypoxia or hypercapnia (6) Panlobular emphysema Current visit: No Status: Chronic Category: Medical Code(s): J43.1 - Panlobular emphysema (7) Chronic sinusitis Current visit: Yes Status: Acute Category: Medical Code(s): J32.9 - Chronic sinusitis, unspecified (8) Shortness of breath Current visit: Yes Status: Acute Category: Medical Code(s): R06.02 - Shortness of breath (9) Cough productive of clear sputum Current visit: Yes Status: Acute Category: Medical Code(s): R05 - Cough - Assessment and plan all Dx Assessment and Plan for all problems:: Patient has improved. H&H has increased. Possible discharge home today.
[2018-12-13 08:31] LABS: Hypochromasia 1+; Lymphocytes % 6 % (10-50); Monocytes % 5 % (2-9); Neutrophils % 89 % (42-76); Total Cells Counted 100
[2018-12-13 08:32] LABS: Anisocytosis 1+
--- NOTE | 2018-12-13 11:29 | Discharge Summary ---
General - General Admission date:: 12/10/18 Discharge date: 12/13/18 HPI HPI: is a 78-year-old female with a history of hypertension, oxygen dependent chronic lung issues, chest pain, GERD, and allergies who has not felt well for several weeks. She has had persistent drainage and a cough. She denies having a fever. She had chest pain in September 2018 and was admitted at that time at which time she had a cardiac catheterization per Dr. Amaya which revealed normal coronary arteries. She also notes that she has been on 3 courses of antibiotics within the last 3 months without improvement as per her primary care physician, Dr. Su, in [facility]. She completed the steroids last week with one antibiotic pill left. She also describes headaches. She has developed diarrhea in the past 4 days which she attributes to the antibiotics.. She states she is always short of breath but now has difficulty with just walking to the bathroom. She usually wears oxygen at 3 L/min per nasal cannula. She is unable to do housework and any activities of daily living. She states her cough has gotten worse and is productive of white and yellow sputum. She has ongoing sinus problems with the drainage. She was seen by Dr. Adrian at clinic today. After ambulating into his office she had a pulse ox of 76% on oxygen. He sent her to the emergency room with thoughts of cardiology consultation and a PE work-up. In the emergency room she was given IV Solu-Medrol, started on Rocephin, given a neb treatment and admitted for further evaluation and treatment. D-dimer in the emergency room was negative. At the time of this exam patient is sitting on the side of the bed and appears comfortable. She denies chest pain. Hospital Course Hospital Course: The patient had a chest x-ray which showed COPD but nothing acute. Her d-dimer was negative therefore chest CT was not done. She was started on antibiotics, duo nebs, steroids, and was placed on telemetry. Cardiology was consulted. She was also started on potassium due to hypokalemia. She did begin feeling better with less cough and shortness of breath. She was able to ambulate around the room with some dyspnea. Cardiology did see the patient in consultation but they felt that her shortness of breath and hypoxia was pulmonary rather than cardiac. They deferred management to her PCP and Dr. Adrian. The patient remained quite tremulous, therefore her steroids were weaned and her duo nebs were changed to Xopenex nebs. Her hemoglobin did decline therefore it was monitored. Her tremor was much better on Xopenex and p.o. steroids. She felt good and wanted to go home. Her H&H did improve and her blood culture showed no growth. She was stable to be discharged home on prednisone, Omnicef, Xopenex nebs, and potassium. She will follow up with her PCP. Objective Vital signs: Temp Pulse Resp BP Pulse Ox 98.2 F 86 20 140/73 98 12/13/18 08:00 12/13/18 08:00 12/13/18 08:00 12/13/18 08:00 12/13/18 08:00 Narrative: - Constitutional no acute distress Comments: Sitting on bedside and appears comfortable. She is hard of hearing. Very conversant. - *Routine HEENT Exam Head: Present: normocephalic, atraumatic Eye: Present: PERRL. Absent: conjunctival icterus, scleral injection, conjunctivae pink ENT: Present: mucous membranes moist, oropharynx clear - *Routine Neck Exam Present: supple, full ROM. Absent: carotid bruit, lymphadenopathy, thyromegaly - *Routine Respiratory Exam Present: diminished air movement (Throughout). Absent: wheezes - *Routine Cardiovascular Exam Present: RRR - *Routine Abdominal Exam Present: soft, normoactive bowel sounds. Absent: tenderness, distended, guarding - *Routine Extremities Exam Absent: edema, calf tenderness - *Routine Neurological Exam Present: alert, oriented X3, moving all extremities Tremors noted in bilateral hands with purposeful movement Results Labs on day of discharge: Labs from last 24 hours 12/13/18 12/13/18 07:12 07:12 WBC 11.0 H D RBC 3.98 L Hgb 10.1 L Hct 31.6 L MCV 79.4 L MCH 25.3 L MCHC 31.8 RDW 15.6 Plt Count 221 MPV 7.4 Neut % (Auto) 88.6 H Lymph % (Auto) 6.9 L [place] % (Auto) 4.3 Eos % (Auto) 0.1 Baso % (Auto) 0.1 Neut # (Auto) 9.8 H Lymph # (Auto) 0.8 [place] # (Auto) 0.5 Eos # (Auto) 0.0 Baso # (Auto) 0.0 Total Counted 100 Neutrophils % (Manual) 89 H Lymphocytes % (Manual) 6 L Monocytes % (Manual) 5 Platelet Estimate Normal RBC Morphology Not Reportable Hypochromasia 1+ Anisocytosis 1+ Microcytosis 1+ Sodium 139 Potassium 4.6 Chloride 107 Carbon Dioxide 23 Anion Gap 13.6 BUN 37 H Creatinine 1.10 H Estimated Creat Clear 52 Estimated GFR 48 L Est GFR ( Amer) 58 L Glucose 113 H Calcium 8.8 Preliminary micro results at discharge 12/10/18 10:30 Blood Culture - Preliminary Blood NO GROWTH AFTER 48 HOURS 12/10/18 10:30 Blood Culture - Preliminary Blood NO GROWTH AFTER 48 HOURS DS: Diagnosis - Discharge Diagnosis (1) COPD exacerbation Status: Acute (2) GERD (gastroesophageal reflux disease) Status: Chronic (3) Chest pain Status: Acute (4) Advanced chronic obstructive pulmonary disease Status: Chronic (5) Chronic respiratory failure Status: Chronic (6) Panlobular emphysema Status: Chronic (7) Chronic sinusitis Status: Acute (8) Shortness of breath Status: Acute (9) Cough productive of clear sputum Status: Acute Discharge Plan - Patient Discharge Instructions ACTIVITY: Continue current activity DIET: continue same diet Patient Instructions: Chronic Obstructive Pulmonary Disease (Alternative Therapy), Heartburn -- Overview, DI for Chronic Obstructive Pulmonary Disease, DI for Gastroesophageal Reflux Disease (GERD), GERD Diet - Follow up Plan Follow up with: Rajendra Su [Referring] - (The patient was instructed to call Dr. Su to arrange follow-up.) Disposition: Home, Self-[facility] Medications: Home Medications Medication Instructions Recorded Confirmed Type albuterol sulfate HFA 90 2 puff INHALATION Q6HP PRN 09/13/18 12/11/18 History mcg/actuation aerosol inhaler fluticasone fur. 100 mcg-umeclid 1 puff INHALATION DAILY 09/13/18 12/11/18 History 62.5 mcg-vilant 25 mcg inhalat.powder hydroxyzine HCl 25 mg tablet 25 mg PO TIDP PRN 09/13/18 12/11/18 History levothyroxine 75 mcg capsule 75 mcg PO DAILY 09/13/18 12/10/18 History linaclotide 290 mcg capsule 290 mcg PO DAILY 09/13/18 12/10/18 History omeprazole 20 mg capsule,delayed 20 mg PO DAILY 09/13/18 12/10/18 History release roflumilast 500 mcg tablet 500 mcg PO DAILY 09/13/18 12/10/18 History spironolactone 25 mg tablet 25 mg PO DAILY #30 tab 10/11/18 12/10/18 Rx Sertraline HCl [Zoloft 50mg tablet] 50 mg PO HS 12/11/18 12/11/18 History Cefdinir [Omnicef 300mg Capsule] 300 mg PO BID #14 cap 12/13/18 Rx Levalbuterol HCl [Xopenex 1.25 mg IH TID #90 vial.neb 12/13/18 Rx 1.25mg/3mL neb] Potassium Chloride [Klor-Con 10mEq 10 meq PO BID #60 tablet.er 12/13/18 Rx tab] predniSONE [Deltasone 20mg 10 mg PO DAILY #30 tab 12/13/18 Rx tablet] Prescriptions/Medication Reconciliation: New predniSONE [Deltasone 20mg tablet] 10 mg PO DAILY #30 tab Cefdinir [Omnicef 300mg Capsule] 300 mg PO BID #14 cap Levalbuterol HCl [Xopenex 1.25mg/3mL neb] 1.25 mg IH TID #90 vial.neb Potassium Chloride [Klor-Con 10mEq tab] 10 meq PO BID #60 tablet.er Continued albuterol sulfate HFA 90 mcg/actuation aerosol inhaler 2 puff INHALATION Q6HP PRN PRN Reason: Wheezing hydroxyzine HCl 25 mg tablet 25 mg PO TIDP PRN PRN Reason: Anxiety levothyroxine 75 mcg capsule 75 mcg PO DAILY linaclotide 290 mcg capsule 290 mcg PO DAILY omeprazole 20 mg capsule,delayed release 20 mg PO DAILY fluticasone fur. 100 mcg-umeclid 62.5 mcg-vilant 25 mcg inhalat.powder 1 puff INHALATION DAILY roflumilast 500 mcg tablet 500 mcg PO DAILY spironolactone 25 mg tablet 25 mg PO DAILY #30 tab Sertraline HCl [Zoloft 50mg tablet] 50 mg PO HS
== END 2018-12-13 10:35 | disposition home or self-care (01) ==
LOC: ER 10:21 → 2ND 10:21
PROVIDERS: ADMIT Family Medicine; ATTEND Family Medicine
CPT/HCPCS: 36415; 71010; 71045; 80048; 80053; 82803; 83605; 84484; 85007; 85025; 85378; 87040; 93005; 94640; 94761; 96365; 96375; 97161; 99284; G0378

== ENCOUNTER → 2019-01-28 12:23 | Outpatient (POV) | payer MEDICARE, SELFPAY | PROVIDERS: Visit Provider Internal Medicine | DX: Z00.00 Encounter for general adult medical examination without abnormal findings (principal) ==

== ENCOUNTER → 2019-02-18 12:00 | Outpatient (POV) | payer MEDICARE, SELFPAY | PROVIDERS: Visit Provider Internal Medicine | DX: Z00.00 Encounter for general adult medical examination without abnormal findings (principal) ==

== ENCOUNTER 2019-02-26 13:31 | Observation (INO) ==
--- NOTE | 2019-02-26 14:33 | Emergency Department Note ---
ED Disposition Clinical Impression: Constipation, Abdominal pain Disposition: Home, Self-Care Condition on Discharge: Fair Instructions: DI for Acute Abdomen Referrals: Rajendra Su [Primary Care Provider] - Time of Disposition: 20:35 - Critical Care Critical Care Time: No Attestation: On , the high probability of a clinically significant, sudden or life threatening deterioration of the following system(s) required my full and direct attention, intervention and personal management. The time I documented below is in addition to time spent performing reported procedures but includes the following listed in this critical care notation. Medical Decision Making - Medical Records Medical records reviewed: Yes: I reviewed the patient's medical records. - Dayo Inquiry Pt receiving controlled substance: No Dayo was queried for this patient: No Vital Signs: 02/26/19 13:39 02/26/19 14:18 02/26/19 17:24 Temperature 97.9 F Temperature Source Oral Pulse Rate [Left Radial] 110 H 88 75 Respiratory Rate 24 Blood Pressure [Right Arm] 153/73 H 127/68 Blood Pressure Mean [Right Arm] 99 87 Blood Pressure Source [Right Arm] Automatic Cuff Automatic Cuff Blood Pressure Position [Right Arm] Sitting Sitting 02 Sat by Pulse Oximetry 92 L 97 97 Oxygen Delivery Method Nasal Cannula Room Air Room Air Oxygen Flow Rate (LPM) 2 - Lab Data Lab results reviewed: Yes: I reviewed the patient's lab results. Lab Results 02/26/19 14:40: WBC 11.7 H, RBC 4.41, Hgb 10.5 L, Hct 34.8 L, MCV 78.9 L, MCH 23.9 L, MCHC 30.3 L, RDW 16.3, Plt Count 260, MPV 6.2 L, Neut % (Auto) 86.2 H, Lymph % (Auto) 9.6 L, [place] % (Auto) 3.7, Eos % (Auto) 0.4, Baso % (Auto) 0.2, Neut # (Auto) 10.1 H, Lymph # (Auto) 1.1, [place] # (Auto) 0.4, Eos # (Auto) 0.1, Baso # (Auto) 0.0, Total Counted 100, Neutrophils % (Manual) 84 H, Band Neutrophils % 1.0, Lymphocytes % (Manual) 14, Monocytes % (Manual) 1 L, Platelet Estimate Normal, Hypochromasia 2+ 02/26/19 14:40: Sodium 142, Potassium 3.4 L, Chloride 106, Carbon Dioxide 27, Anion Gap 12.4, BUN 22 H, Creatinine 1.08 H, Estimated Creat Clear 48, Estimated GFR 49 L, Est GFR ( Amer) 60, Glucose 113 H, Calcium 9.0, Total Bilirubin 0.3, AST 8 L, ALT 15, Alkaline Phosphatase 96, Total Protein 6.8, Albumin 3.4, Globulin 3.4 H, Albumin/Globulin Ratio 1.0 L 02/26/19 14:45: ESR 24 02/26/19 14:45: C-Reactive Protein 1.8 H 02/26/19 16:12: Urine Color Yellow, Urine Appearance Clear, Urine pH 6.0, Ur Specific [place] 1.010, Urine Protein Negative, Urine Glucose (UA) Negative, Urine Ketones Negative, Urine Blood Negative, Urine Nitrate Negative, Urine Bilirubin Negative, Urine Urobilinogen 0.2, Ur Leukocyte Esterase Negative, Urine RBC None, Urine WBC 5-10, Ur Squamous Epith Cells 3-5, Urine Bacteria Trace 02/26/19 18:55: Lactate 0.9 Result diagrams: 02/26/19 14:40 02/26/19 14:40 Orders (Tests/Meds): ED MEDICATIONS Discontinued Medications Generic Name Dose Route Start Last Admin Trade Name Eusebio PRN Reason Stop Dose Admin Dicyclomine HCl 20 mg 02/26/19 17:12 02/26/19 17:14 Dicyclomine 20mg/2ml Vial IM 02/26/19 17:13 20 mg ONCE ONE Administration Ioversol 75 ml 02/26/19 15:41 02/26/19 15:41 Rad-Optiray 350 100ml Vial IV 02/26/19 15:42 75 ml ONCE ONE Administration Protocol Sodium Chloride 10 ml 02/26/19 15:41 02/26/19 15:41 Rad-Saline Flush 10ml Syringe IV 02/26/19 15:42 10 ml ONCE ONE Administration - Physician Consults Physician Consulted: surgery Reason -: Pt condition Comment/Response: rec iv antibiotics and stimulate from above Additional Consult: azucena/jairo Reason -: Admission, Pt condition, Surgical Eval/Care Abdominal Pain HPI - General Chief Complaint: Abdominal Pain Stated Complaint: cramping Time Seen by Provider: 02/26/19 14:30 Mode of Arrival: Ambulatory Source of Information: Patient Limitations: No Limitations Description of Symptoms (Recalled from ER Triage Doc. by RN): to ed per pvt car with c/o lower abd cramping and constipation, states last BM 9 days ago. states she has taken laxatives at home with no results. - History of Present Illness HPI narrative: ongoing pain for about two weeks, finally had bm on sunday. none since. states she had two surgeries for same at [facility] - Related Data Home Medications Medication Instructions Recorded Confirmed albuterol sulfate HFA 90 2 puff INHALATION Q6HP PRN 09/13/18 02/26/19 mcg/actuation aerosol inhaler fluticasone fur. 100 mcg-umeclid 1 puff INHALATION DAILY 09/13/18 02/26/19 62.5 mcg-vilant 25 mcg inhalat.powder hydroxyzine HCl 25 mg tablet 25 mg PO TIDP PRN 09/13/18 02/26/19 levothyroxine 75 mcg capsule 75 mcg PO DAILY 09/13/18 02/26/19 linaclotide 290 mcg capsule 290 mcg PO DAILY 09/13/18 02/26/19 omeprazole 20 mg capsule,delayed 20 mg PO DAILY 09/13/18 02/26/19 release roflumilast 500 mcg tablet 500 mcg PO DAILY 09/13/18 02/26/19 Sertraline HCl [Zoloft 50mg tablet] 50 mg PO HS 12/11/18 02/26/19 Levalbuterol HCl [Xopenex 1.25 mg IH TID 02/26/19 02/26/19 1.25mg/3mL neb] Potassium Chloride [Klor-Con 10mEq 10 meq PO BID 02/26/19 02/26/19 tab] Spironolactone [Spironolactone 25 mg PO DAILY 02/26/19 02/26/19 25mg Tablet] predniSONE [Deltasone 20mg 10 mg PO DAILY 02/26/19 02/26/19 tablet] predniSONE [Prednisone 10mg Tab 10 mg PO DAILY 02/26/19 02/26/19 Dose-Pack] Allergies Allergy/AdvReac Type Severity Reaction Status Date / Time No Known Allergies Allergy Verified 10/11/18 09:38 [facility] History - Hepatitis A Screen Drug use history?: No High risk sexual behaviors?: No History of sexually transmitted infection?: No Currently employed?: No Childcare worker?: No Do you have indoor plumbing?: Yes Do you have electricity?: Yes Attestation statement:: This patient has been screened for Hepatitis A risk factors. I have reviewed the patient's past medical history: Yes Medical History: Reports:: Anxiety, Chronic Obstructive Pulmonary Disease (COPD), Gastroesophageal Reflux Disease(GERD), Home Oxygen, Lung Disease, Renal Insufficiency Denies:: Cancer, Coronary Artery Disease, Deep Vein Thrombosis, Diabetes Mellitus Type 1, Diabetes Mellitus Type 2, MRSA, Myocardial Infarction, Seizures Other Medical History: Reports: Hypothyroidism Other Surgeries: Yes: Cardiac Catheterization, Cholecystectomy, Hysterectomy- Total Amputation: No Fractures: No - Social History Smoking Status: Former smoker Tobacco Type: cigarettes # Packs/Day (cigarettes): 1 #Yrs smoked (if former smoker): 30 Alcohol Intake: never Substance Use Type: denies use Occupational Status: retired Housing: house Household Members: spouse - Psychiatric History Pschychiatric History:: Reports:: Anxiety Family Hx:: Coronary Artery Disease ROS Obtained: Yes All systems reviewed & no additional complaints - Constitutional Constitutional: Denies fever(s) - Eyes Eyes: Denies blurry vision, Denies change in vision - Cardiovascular Cardiovascular: Denies chest pain, Denies chest pain at rest - Respiratory Respiratory: No chest congestion, No cough, No dyspnea - Gastrointestinal Gastrointestingal: Reports: abdominal pain, constipation - Genitourinary Female Genitourinary: Denies dysuria, Denies flank pain - Musculoskeletal Musculoskeletal: Denies joint pain, Denies joint stiffness, Denies joint swelling - Integumentary/Breasts Skin/Breast: Denies rash, Denies skin pain - Neurologic Neurologic: Denies headache(s), Denies syncope - Hematologic/Lymphatic Henatologic/Lymphatic: Denies easy bleeding, Denies easy bruising Physical Exam - General General appearance: alert, in no apparent distress - Head Head exam: atraumatic, normocephalic, normal inspection - Eye Eye exam: Present: normal appearance, PERRL, EOMI - ENT ENT exam: Present: normal exam, normal oropharynx, mucous membranes moist, TM's normal bilaterally, normal external ear exam - Neck Neck exam: Present: normal inspection, full ROM, trachea midline. Absent: meningismus, lymphadenopathy - Respiratory Respiratory exam: Present: normal lung sounds bilaterally. Absent: respiratory distress - Cardiovascular Cardiovascular exam: Present: regular rate, normal rhythm. Absent: JVD - Abdominal Exam Abdominal exam: Present: soft, distention, tenderness, mass, hernia. Absent: guarding, rebound Abdominal tenderness: Present: LLQ - Extremities Exam Extremities exam: Present: normal inspection, full ROM, normal capillary refill. Absent: calf tenderness - Back Exam Back exam: Present: normal inspection. Absent: tenderness - Neurological Exam Neurological exam: Present: alert, oriented X3 - Psychiatric Psychiatric exam: Present: normal affect, normal mood - Skin Skin exam: Present: warm, dry, intact, normal color - Lymphatic Lymphatic Findings: no adenopathy
[2019-02-26 14:47] LABS: Basophils % 0.2 % (0.1-2.0); Eosinophils # 0.1 K/mm3 (0.0-0.4); Eosinophils % 0.4 % (0.1-12.0); Hematocrit 34.8 % (37.0-47.0); Hemoglobin 10.5 g/dL (12.2-16.2); Lymphocytes # 1.1 K/mm3 (0.7-4.5); Lymphocytes % 9.6 % (10-50); Mean Corpuscular HGB Conc 30.3 g/dL (31.8-35.4); Mean Corpuscular Volume 78.9 fl (81-99); Mean Platelet Volume 6.2 fl (7.4-10.4); Monocytes # 0.4 K/mm3 (0.1-1.0); Monocytes % 3.7 % (1.7-9.3); Neutrophils # 10.1 K/mm3 (1.8-7.8); Neutrophils % 86.2 % (37.0-80.0); Platelet Count 260 K/mm3 (142-424); Red Blood Count 4.41 M/mm3 (4.20-5.40); Red Cell Distribution Width 16.3 % (11.5-17.5); White Blood Count 11.7 K/mm3 (4.8-10.8)
[2019-02-26 15:00] LABS: Albumin Level 3.4 gm/dL (3.4-5.0); Anion Gap 12.4 mEq/L (5-15); Bilirubin,Total 0.3 mg/dL (0.2-1.0); Globulin 3.4 gm/dl (1.3-3.2); Total Protein,Serum 6.8 gm/dL (6.4-8.2)
[2019-02-26 15:27] LABS: Hypochromasia 2+; Lymphocytes % 14 % (10-50); Monocytes % 1 % (2-9); Neutrophils % 84 % (42-76); Total Cells Counted 100
[2019-02-26 16:25] LABS: Microscopic, Urine URINE MICROSCOPIC (MICROSCOPIC)
[2019-02-26 16:26] LABS: Appearance,Urine CLEAR (Clear); Bilirubin,Urine Negative (Negative); Blood, Urine Negative (Negative); Color,Urine YELLOW (Yellow); Glucose,Urine (UA) Negative (Negative); Ketones,Urine Negative (Negative); Leukocyte Esterase,Urine Negative (Negative); Protein,Urine Negative (Negative); Urobilinogen,Urine 0.2 EU/dl (0.2)
[2019-02-26 16:47] LABS: Bacteria,Urine Trace /lpf
--- NOTE | 2019-02-27 07:41 | Pharmacy Consult Notes ---
[facility] Pharmacy VTE Monitoring - Patient Demographics Admission date: 02/26/19 Report Date: 02/27/19 Time: 07:41 Allergies/Adverse Reactions: Patient Allergies No Known Allergies Allergy (Verified 10/11/18 09:38) Height: 1.7 m Weight: 70.392 kg Patient Problems: Current Active Problems Constipation (Acute) Abdominal pain (Acute) - VTE Risk Labs: VTE Related Lab Results Hgb 10.5 g/dL (12.2-16.2) L 02/26/19 14:40 Hct 34.8 % (37.0-47.0) L 02/26/19 14:40 Plt Count 260 K/mm3 (142-424) 02/26/19 14:40 BUN 22 mg/dL (7-18) H 02/26/19 14:40 Creatinine 1.08 mg/dL (0.55-1.02) H 02/26/19 14:40 Estimated Creat Clear 48 mL/min (50-200) 02/26/19 14:40 Was VTE Risk Assessment Performed: Yes VTE Score: 3 VTE Risk Level: Low Risk - Prophylaxis VTE Prophylaxis Ordered?: Yes Types of VTE Prophylaxis: TEDS Knee High Location of Applied Device: Bilateral Lower Extremeties - VTE Diagnosis Confirmed Treatment or plan recommended: Continue Current Treatment
--- NOTE | 2019-02-27 09:32 | History & Physical Report ---
*Admission Date: 02/26/19 *Chief complaint: abd pain *History of present illness: 78 yr old female presented to ed with lower abd cramping and constipation, states last BM 9 days ago. states she has taken laxatives at home with no results. Pt admitted for constipation and poss colititis. mariam for surgery and gi consult. [facility] History I have reviewed the patient's past medical history: Yes Medical History: Reports:: Anxiety, Chronic Obstructive Pulmonary Disease (COPD), Coronary Artery Disease, Gastroesophageal Reflux Disease(GERD), Home Oxygen, Lung Disease, Renal Insufficiency Denies:: Cancer, Deep Vein Thrombosis, Diabetes Mellitus Type 1, Diabetes Mellitus Type 2, MRSA, Myocardial Infarction, Seizures *Have you ever received a pneumonia vaccine?: Yes *Have you received a flu vaccine this season?: Yes Other Medical History: Reports: Hypothyroidism Laterality Cases: Right: Total Hip Replacement Other Surgeries: Yes: Angiogram, Cardiac Catheterization, Cholecystectomy, Colonoscopy, Colon Resection, Hysterectomy-Total, Hysterectomy-Partial Amputation: No Fractures: No - *Social History Educational Level: Completed [employer] Smoking Status: Former smoker Tobacco Type: cigarettes # Packs/Day (cigarettes): 1 #Yrs smoked (if former smoker): 30 Alcohol Intake: never Substance Use Type: denies use *Occupational Status:: retired Housing: house Household Members: spouse *Travel in the last 8 weeks: None - Psychiatric History Expresses thoughts of harming self/others: None Suicide Plan Description: No Plan Pschychiatric History:: Reports:: Anxiety Family Hx:: Cancer, Coronary Artery Disease, Diabetes, Stroke Review of Systems - Constitutional Denies fever(s) - Eyes Denies change in vision - ENT Denies ear pain - *Cardiovascular Denies chest pain at rest - *Respiratory Denies chest congestion - *Gastrointestinal Reports abdominal pain, Reports constipation, Reports cramping, Reports nausea, Denies vomiting - *Genitourinary Denies difficulty urinating - *Musculoskeletal Denies joint pain - Integumentary/Breasts Denies rash - *Neurologic Denies abnormal movements, Denies headache(s), Denies fainting - Psychiatric Denies anxiety - Endocrine Denies flushing - Hematologic/Lymphatic Denies enlarged lymph nodes - Allergic/Immunologic Denies lip swelling Meds Home Medications Medication Instructions Recorded Confirmed Type albuterol sulfate HFA 90 2 puff INHALATION Q6HP PRN 09/13/18 02/26/19 History mcg/actuation aerosol inhaler fluticasone fur. 100 mcg-umeclid 1 puff INHALATION DAILY 09/13/18 02/26/19 History 62.5 mcg-vilant 25 mcg inhalat.powder hydroxyzine HCl 25 mg tablet 25 mg PO TIDP PRN 09/13/18 02/26/19 History levothyroxine 75 mcg capsule 75 mcg PO DAILY 09/13/18 02/26/19 History linaclotide 290 mcg capsule 290 mcg PO DAILY 09/13/18 02/26/19 History omeprazole 20 mg capsule,delayed 20 mg PO DAILY 09/13/18 02/26/19 History release roflumilast 500 mcg tablet 500 mcg PO DAILY 09/13/18 02/26/19 History Escitalopram Oxalate [Lexapro] 10 mg PO DAILY 02/26/19 02/26/19 History Levalbuterol HCl [Xopenex 1.25 mg IH TID 02/26/19 02/26/19 History 1.25mg/3mL neb] Potassium Chloride [Klor-Con 10mEq 10 meq PO BID 02/26/19 02/26/19 History tab] predniSONE [Prednisone 10mg Tab 10 mg PO DAILY 02/26/19 02/26/19 History Dose-Pack] Allergies Allergy/AdvReac Type Severity Reaction Status Date / Time No Known Allergies Allergy Verified 10/11/18 09:38 Exam Vital signs and Labs for Last 24 Hours: Temp Pulse Resp BP Pulse Ox 98.3 F 78 18 123/68 96 02/27/19 07:42 02/27/19 07:42 02/27/19 07:42 02/27/19 07:42 02/27/19 07:42 Laboratory Results - last 24 hr 02/26/19 14:40: WBC 11.7 H, RBC 4.41, Hgb 10.5 L, Hct 34.8 L, MCV 78.9 L, MCH 23.9 L, MCHC 30.3 L, RDW 16.3, Plt Count 260, MPV 6.2 L, Neut % (Auto) 86.2 H, Lymph % (Auto) 9.6 L, [place] % (Auto) 3.7, Eos % (Auto) 0.4, Baso % (Auto) 0.2, Neut # (Auto) 10.1 H, Lymph # (Auto) 1.1, [place] # (Auto) 0.4, Eos # (Auto) 0.1, Baso # (Auto) 0.0, Total Counted 100, Neutrophils % (Manual) 84 H, Band Neutrophils % 1.0, Lymphocytes % (Manual) 14, Monocytes % (Manual) 1 L, Platelet Estimate Normal, Hypochromasia 2+ 02/26/19 14:40: Sodium 142, Potassium 3.4 L, Chloride 106, Carbon Dioxide 27, Anion Gap 12.4, BUN 22 H, Creatinine 1.08 H, Estimated Creat Clear 48, Estimated GFR 49 L, Est GFR ( Amer) 60, Glucose 113 H, Calcium 9.0, Total Bilirubin 0.3, AST 8 L, ALT 15, Alkaline Phosphatase 96, Total Protein 6.8, Albumin 3.4, Globulin 3.4 H, Albumin/Globulin Ratio 1.0 L 02/26/19 14:45: ESR 24 02/26/19 14:45: C-Reactive Protein 1.8 H 02/26/19 16:12: Urine Color Yellow, Urine Appearance Clear, Urine pH 6.0, Ur Specific [place] 1.010, Urine Protein Negative, Urine Glucose (UA) Negative, Urine Ketones Negative, Urine Blood Negative, Urine Nitrate Negative, Urine Bilirubin Negative, Urine Urobilinogen 0.2, Ur Leukocyte Esterase Negative, Urine RBC None, Urine WBC 5-10, Ur Squamous Epith Cells 3-5, Urine Bacteria Trace 02/26/19 18:55: Lactate 0.9 I & O for Last 24 hours: Intake & Output 02/24/19 02/25/19 02/26/19 02/27/19 11:59 11:59 11:59 11:59 Intake Total 150 / 150 Balance 150 / 150 Weight 155 lb 3 oz - Constitutional no acute distress - *Routine HEENT Exam Head: Present: normocephalic Eye: Present: PERRL ENT: Present: mucous membranes moist - *Routine Neck Exam Present: supple. Absent: lymphadenopathy - *Routine Respiratory Exam Present: CTA bilaterally - *Routine Cardiovascular Exam Present: RRR - *Routine Abdominal Exam Present: soft, normoactive bowel sounds, tenderness - *Routine Extremities Exam Present: full ROM. Absent: cyanosis, clubbing, edema - *Routine Skin Exam Present: warm. Absent: rash - *Routine Neurological Exam Present: alert, oriented X3 - Routine Psychiatric Exam Present: normal affect Assessment and Plan - Assessment and plan all Dx Assessment and Plan for all problems:: rounded with dr zeng all orders per azucena
--- NOTE | 2019-02-27 10:58 | Consult Report ---
*Admission Date: 02/26/19 *Reason for consult:: Constipation *History of present illness: Patient is a 78-year-old white female who states that she has a very long- standing history of constipation for "all my life". She states that for many many years she has been dependent on laxatives. She has actually undergone 2 separate surgeries for constipation with colon resection in [facility]. She states that the surgeries "did not help". She has had ongoing continued problems with constipation. She had presented to the emergency department yesterday afternoon after she had not moved her bowels for some time and describes some increasing abdominal "soreness". She underwent CT scanning which revealed findings of prominent stool throughout the colon with some haziness possibly consistent with colitis. She was admitted for inpatient management and surgical consultation. Review of Systems - Review of Systems Review of systems:: pertinent systems reviewed and negative unless documented below - *Neurologic Denies headache(s), Denies fainting [facility] History Medical History: Reports:: Anxiety, Chronic Obstructive Pulmonary Disease (COPD), Coronary Artery Disease, Gastroesophageal Reflux Disease(GERD), Home Oxygen, Lung Disease, Renal Insufficiency Denies:: Cancer, Deep Vein Thrombosis, Diabetes Mellitus Type 1, Diabetes Mellitus Type 2, MRSA, Myocardial Infarction, Seizures *Have you ever received a pneumonia vaccine?: Yes *Have you received a flu vaccine this season?: Yes Other Medical History: Reports: Hypothyroidism Laterality Cases: Right: Total Hip Replacement Other Surgeries: Yes: Angiogram, Cardiac Catheterization, Cholecystectomy, Colonoscopy, Colon Resection, Hysterectomy-Total, Hysterectomy-Partial Amputation: No Fractures: No - *Social History Educational Level: Completed [employer] Smoking Status: Former smoker Tobacco Type: cigarettes # Packs/Day (cigarettes): 1 #Yrs smoked (if former smoker): 30 Alcohol Intake: never Substance Use Type: denies use *Occupational Status:: retired Housing: house Household Members: spouse *Travel in the last 8 weeks: None - Psychiatric History Expresses thoughts of harming self/others: None Suicide Plan Description: No Plan Pschychiatric History:: Reports:: Anxiety Family Hx:: Cancer, Coronary Artery Disease, Diabetes, Stroke Meds Home Medications Medication Instructions Recorded Confirmed Type albuterol sulfate HFA 90 2 puff INHALATION Q6HP PRN 09/13/18 02/26/19 History mcg/actuation aerosol inhaler fluticasone fur. 100 mcg-umeclid 1 puff INHALATION DAILY 09/13/18 02/26/19 History 62.5 mcg-vilant 25 mcg inhalat.powder hydroxyzine HCl 25 mg tablet 25 mg PO TIDP PRN 09/13/18 02/26/19 History levothyroxine 75 mcg capsule 75 mcg PO DAILY 09/13/18 02/26/19 History linaclotide 290 mcg capsule 290 mcg PO DAILY 09/13/18 02/26/19 History omeprazole 20 mg capsule,delayed 20 mg PO DAILY 09/13/18 02/26/19 History release roflumilast 500 mcg tablet 500 mcg PO DAILY 09/13/18 02/26/19 History Escitalopram Oxalate [Lexapro] 10 mg PO DAILY 02/26/19 02/26/19 History Levalbuterol HCl [Xopenex 1.25 mg IH TID 02/26/19 02/26/19 History 1.25mg/3mL neb] Potassium Chloride [Klor-Con 10mEq 10 meq PO BID 02/26/19 02/26/19 History tab] predniSONE [Prednisone 10mg Tab 10 mg PO DAILY 02/26/19 02/26/19 History Dose-Pack] Allergies Allergy/AdvReac Type Severity Reaction Status Date / Time No Known Allergies Allergy Verified 10/11/18 09:38 Exam Vital signs and Labs for Last 24 Hours: Temp Pulse Resp BP Pulse Ox 98.3 F 78 18 123/68 96 02/27/19 07:42 02/27/19 07:42 02/27/19 07:42 02/27/19 07:42 02/27/19 07:42 Laboratory Results - last 24 hr 02/26/19 14:40: WBC 11.7 H, RBC 4.41, Hgb 10.5 L, Hct 34.8 L, MCV 78.9 L, MCH 23.9 L, MCHC 30.3 L, RDW 16.3, Plt Count 260, MPV 6.2 L, Neut % (Auto) 86.2 H, Lymph % (Auto) 9.6 L, [place] % (Auto) 3.7, Eos % (Auto) 0.4, Baso % (Auto) 0.2, Neut # (Auto) 10.1 H, Lymph # (Auto) 1.1, [place] # (Auto) 0.4, Eos # (Auto) 0.1, B aso # (Auto) 0.0, Total Counted 100, Neutrophils % (Manual) 84 H, Band Neut rophils % 1.0, Lymphocytes % (Manual) 14, Monocytes % (Manual) 1 L, Platelet Estimate Normal, Hypochromasia 2+ 02/26/19 14:40: Sodium 142, Potassium 3.4 L, Chloride 106, Carbon Dioxide 27, Anion Gap 12.4, BUN 22 H, Creatinine 1.08 H, Estimated Creat Clear 48, Estimated GFR 49 L, Est GFR ( Amer) 60, Glucose 113 H, Calcium 9.0, Total Bilirubin 0.3, AST 8 L, ALT 15, Alkaline Phosphatase 96, Total Protein 6.8, Albumin 3.4, Globulin 3.4 H, Albumin/Globulin Ratio 1.0 L 02/26/19 14:45: ESR 24 02/26/19 14:45: C-Reactive Protein 1.8 H 02/26/19 16:12: Urine Color Yellow, Urine Appearance Clear, Urine pH 6.0, Ur Specific [place] 1.010, Urine Protein Negative, Urine Glucose (UA) Negative, Urine Ketones Negative, Urine Blood Negative, Urine Nitrate Negative, Urine Bilirubin Negative, Urine Urobilinogen 0.2, Ur Leukocyte Esterase Negative, Urine RBC None, Urine WBC 5-10, Ur Squamous Epith Cells 3-5, Urine Bacteria Trac e 02/26/19 18:55: Lactate 0.9 I & O for Last 24 hours: Intake & Output 02/24/19 02/25/19 02/26/19 02/27/19 11:59 11:59 11:59 11:59 Intake Total 150 / 150 Balance 150 / 150 Weight 155 lb 3 oz - *Routine HEENT Exam Head: Present: normocephalic Eye: Present: EOMI, PERRL ENT: Present: mucous membranes moist - *Routine Neck Exam Present: supple. Absent: lymphadenopathy - *Routine Respiratory Exam Present: distant breath sounds - *Routine Cardiovascular Exam Present: RRR - *Routine Abdominal Exam Present: soft, normoactive bowel sounds, tenderness Comments: She does have an obvious incisional hernia near her umbilical area. This is soft and reducible. She has some tenderness without guarding throughout the abdomen seemingly more pronounced on the right abdomen. - *Routine Extremities Exam Absent: cyanosis, clubbing, edema - *Routine Skin Exam Present: warm. Absent: rash - *Routine Neurological Exam Present: alert, oriented X3 - Detailed Eye Exam Eyelids: Left normal inspection Results - Labs 02/26/19 14:40 02/26/19 14:40 Laboratory Results - last 24 hr 02/26/19 14:40: WBC 11.7 H, RBC 4.41, Hgb 10.5 L, Hct 34.8 L, MCV 78.9 L, MCH 23.9 L, MCHC 30.3 L, RDW 16.3, Plt Count 260, MPV 6.2 L, Neut % (Auto) 86.2 H, Lymph % (Auto) 9.6 L, [place] % (Auto) 3.7, Eos % (Auto) 0.4, Baso % (Auto) 0.2, Neut # (Auto) 10.1 H, Lymph # (Auto) 1.1, [place] # (Auto) 0.4, Eos # (Auto) 0.1, Baso # (Auto) 0.0, Total Counted 100, Neutrophils % (Manual) 84 H, Band Neutrophils % 1.0, Lymphocytes % (Manual) 14, Monocytes % (Manual) 1 L, Platelet Estimate Normal, Hypochromasia 2+ 02/26/19 14:40: Sodium 142, Potassium 3.4 L, Chloride 106, Carbon Dioxide 27, Anion Gap 12.4, BUN 22 H, Creatinine 1.08 H, Estimated Creat Clear 48, Estimated GFR 49 L, Est GFR ( Amer) 60, Glucose 113 H, Calcium 9.0, Total Bilirubin 0.3, AST 8 L, ALT 15, Alkaline Phosphatase 96, Total Protein 6.8, Albumin 3.4, Globulin 3.4 H, Albumin/Globulin Ratio 1.0 L 02/26/19 14:45: ESR 24 02/26/19 14:45: C-Reactive Protein 1.8 H 02/26/19 16:12: Urine Color Yellow, Urine Appearance Clear, Urine pH 6.0, Ur Spe cific [place] 1.010, Urine Protein Negative, Urine Glucose (UA) Negative, Urine Ketones Negative, Urine Blood Negative, Urine Nitrate Negative, Urine Bilirubin Negative, Urine Urobilinogen 0.2, Ur Leukocyte Esterase Negative, Urine RBC None, Urine WBC 5-10, Ur Squamous Epith Cells 3-5, Urine Bacteria Trace 02/26/19 18:55: Lactate 0.9 Assessment and Plan - Assessment and plan all Dx Assessment and Plan for all problems:: Patient likely has functional constipation. Recommend bowel regimen. No surgical interventions at this time. Findings of possible colitis on CT scan likely not infectious but potentially colonic edema and secondary inflammation secondary to pressure. Monitor for development of ischemic colitis secondary to fecal pressure on the colon. Hopefully her symptoms improved with bowel cleansing.
[2019-02-28 06:14] LABS: Basophils % 0.2 % (0.1-2.0); Eosinophils # 0.1 K/mm3 (0.0-0.4); Eosinophils % 1.2 % (0.1-12.0); Hematocrit 28.6 % (37.0-47.0); Hemoglobin 8.8 g/dL (12.2-16.2); Lymphocytes # 1.1 K/mm3 (0.7-4.5); Lymphocytes % 15.7 % (10-50); Mean Corpuscular HGB Conc 30.8 g/dL (31.8-35.4); Mean Corpuscular Volume 78.6 fl (81-99); Mean Platelet Volume 6.6 fl (7.4-10.4); Monocytes # 0.5 K/mm3 (0.1-1.0); Neutrophils # 5.5 K/mm3 (1.8-7.8); Neutrophils % 75.8 % (37.0-80.0); Platelet Count 237 K/mm3 (142-424); Red Blood Count 3.63 M/mm3 (4.20-5.40); Red Cell Distribution Width 16.2 % (11.5-17.5); White Blood Count 7.2 K/mm3 (4.8-10.8)
[2019-02-28 06:25] LABS: Anion Gap 10.1 mEq/L (5-15); Calcium 8.2 mg/dL (8.5-10.1)
--- NOTE | 2019-02-28 07:20 | Progress Note ---
Subjective Narrative: Patient drank more than 2 L of her GoLYTELY. She had developed some nausea. She had a single very small bowel movement. She still complains of her abdomen being "sore". Exam Vital signs and Labs for Last 24 Hours: Temp Pulse Resp BP Pulse Ox 98.4 F 86 19 127/58 L 93 L 02/28/19 04:00 02/28/19 04:00 02/28/19 04:00 02/28/19 04:00 02/28/19 04:00 Laboratory Results - last 24 hr 02/28/19 05:37: WBC 7.2 D, RBC 3.63 L, Hgb 8.8 L, Hct 28.6 L, MCV 78.6 L, MCH 24.2 L, MCHC 30.8 L, RDW 16.2, Plt Count 237, MPV 6.6 L, Neut % (Auto) 75.8, Lymph % (Auto) 15.7, [place] % (Auto) 7.0, Eos % (Auto) 1.2, Baso % (Auto) 0.2, Neut # (Auto) 5.5, Lymph # (Auto) 1.1, [place] # (Auto) 0.5, Eos # (Auto) 0.1, Baso # (Auto) 0.0 02/28/19 05:37: Sodium 146 H, Potassium 3.1 L, Chloride 110 H, Carbon Dioxide 29, Anion Gap 10.1, BUN 14 D, Creatinine 0.95, Estimated Creat Clear 56, Estimated GFR 57 L, Est GFR ( Amer) 69, Glucose 87, Calcium 8.2 L I & O for Last 24 hours: Intake & Output 02/25/19 02/26/19 02/27/19 02/28/19 11:59 11:59 11:59 11:59 Intake Total 150 / 150 2410 / 2410 Balance 150 / 150 2410 / 2410 Weight 155 lb 3 oz 165 lb 2 oz - *Routine Abdominal Exam Present: soft, tenderness Progress Note: A&P Assessment and Plan for All Diagnoses:: Her abdomen seems somewhat softer. Recommend continuation of bowel regimen.
--- NOTE | 2019-02-28 13:00 | Procedure Note ---
[facility] Procedure Note Procedure Note:: Flexible sigmoidoscopy procedure Report: Flexible sigmoidoscopy Endoscopist: Victor M Desai II, MD Referring physician: Maciel Blackmon MD/Rajendra Su MD Date of Procedure: February 28, 2019 Equipment: Olympus 180 variable stiffness pediatric colonoscope Sedation: MAC sedation Indication: Mrs. Oates is a 78-year-old female who presents with fecal impaction and inability to have a bowel movement. She has had some chronic constipation and is laxative dependent. She has had 2 prior surgeries for her constipation. She does report lower abdominal pain and discomfort with bloating. She reports no weight loss. She has had minor spotting of blood on the tissue. Her CAT scan showed abundant stool throughout the colon with some haziness suggestive of colitis. Her last colonoscopy was 12 to 15 years ago. She does state that her mother had colon cancer at the age of 84. She is an inpatient and this sigmoidoscopy/attempted colonoscopy is performed for diagnostic purposes. Procedure: Prior to the procedure, a history and physical exam was performed, and patient's medications and allergies were reviewed. The risks, benefits and alternatives of the sedation and procedure were discussed with the patient. All questions were answered and informed consent was obtained. The patient was brought to the procedure room. Patient identification and proposed procedure were verified by the physician and the nurse. The patient was placed in a left lateral decubitus position and the scope was passed under direct vision. Throughout the procedure, the patient's blood pressure, pulse, and oxygen saturations were monitored continuously. The colonoscopy was accomplished without difficulty. The patient tolerated the procedure well. Findings: On digital rectal examination there was normal rectal tone. There was some angulation at the puborectalis but there was no rectocele. There were no palpable lesions rectally. There were external hemorrhoid tags small but no thrombosed hemorrhoids or stricturing. The scope was then inserted through the anal canal into the rectum and advanced to 35 cm. The scope could not be advanced further due to marked amount of solid stool. Upon withdrawal there were some diverticuli in the sigmoid colon. There were certainly no strictures or obstructing lesions. Impression: 1. Unprepped colonoscopy due to fecal impaction 2. Left-sided diverticulosis Plan: I would recommend magnesium citrate from above with lactulose or mineral oil enemas from below. I do not feel that she will need more than 1 or 2 enemas and then she should get movement/disimpaction. I would consider adding Linzess 290 mcg p.o. every morning to her regimen. I would recommend full diagnostic colonoscopy as an outpatient and follow-up in the GI clinic in [place] ([facility]).
--- NOTE | 2019-02-28 16:49 | Progress Note ---
Internal Medicine - PN: Subj *Date: 02/28/19 *Time: 08:00 Interval history: pt sitting up eatting breakfast. states stomach sore small bm Exam Vital signs and Labs for Last 24 Hours: Temp Pulse Resp BP Pulse Ox 92 F L 74 20 137/65 92 L 02/28/19 13:40 02/28/19 13:40 02/28/19 13:40 02/28/19 13:40 02/28/19 13:40 Laboratory Results - last 24 hr 02/28/19 05:37: WBC 7.2 D, RBC 3.63 L, Hgb 8.8 L, Hct 28.6 L, MCV 78.6 L, MCH 24.2 L, MCHC 30.8 L, RDW 16.2, Plt Count 237, MPV 6.6 L, Neut % (Auto) 75.8, Lymph % (Auto) 15.7, [place] % (Auto) 7.0, Eos % (Auto) 1.2, Baso % (Auto) 0.2, Neut # (Auto) 5.5, Lymph # (Auto) 1.1, [place] # (Auto) 0.5, Eos # (Auto) 0.1, Baso # (Auto) 0.0 02/28/19 05:37: Sodium 146 H, Potassium 3.1 L, Chloride 110 H, Carbon Dioxide 29, Anion Gap 10.1, BUN 14 D, Creatinine 0.95, Estimated Creat Clear 56, Estimated GFR 57 L, Est GFR ( Amer) 69, Glucose 87, Calcium 8.2 L I & O for Last 24 hours: Intake & Output 02/26/19 02/27/19 02/28/19 03/01/19 11:59 11:59 11:59 11:59 Intake Total 150 / 150 2510 / 2510 Balance 150 / 150 2510 / 2510 Weight 155 lb 3 oz 165 lb 2 oz - Constitutional no acute distress - *Routine HEENT Exam Head: Present: normocephalic Eye: Present: EOMI, PERRL ENT: Present: mucous membranes moist - *Routine Neck Exam Present: supple. Absent: lymphadenopathy - *Routine Respiratory Exam Present: CTA bilaterally - *Routine Cardiovascular Exam Present: RRR - *Routine Abdominal Exam Present: soft, normoactive bowel sounds, tenderness - *Routine Extremities Exam Present: full ROM. Absent: cyanosis, clubbing, edema - *Routine Skin Exam Present: warm. Absent: rash - *Routine Neurological Exam Present: alert, oriented X3 Assessment and Plan - Assessment and plan all Dx Assessment and Plan for all problems:: rounded with azucena all orders per azucena consult sonu olson
[2019-03-01 07:53] VITALS: BP 129/49
--- NOTE | 2019-03-01 09:47 | Discharge Summary ---
General - General Admission date:: 02/26/19 Discharge date: 03/01/19 HPI HPI: 78 yr old female presented to ed with lower abd cramping and constipation, states last BM 9 days ago. states she has taken laxatives at home with no results. Pt admitted for constipation and poss colititis. mariam for surgery and gi consult. Hospital Course Hospital Course: ct abd pelvis:IMPRESSION: 1... Constipation. Increased/Prominent solid stool most pronounced at moderately distended redundant sigmoid colon. Also increased solid stool throughout the left colon and transverse colon Possible mild colitis Mildly hazy appearance pericolic fat leading to the stool-filled sigmoid region-may reflect mild inflammation or colitis here. Liquid stool at right colon and cecum, with borderline wall thickening right colon. These findings could reflect a mild enterocolitis although alternatively could results of the patient's laxative,.. 2.. Prominent emphysematous changes lung bases 3...Fat containing umbilical hernia and small fat containing epigastric ventral hernia. No associated bowel loops nor no inflammation in these areas per Dr Desai note:Plan: I would recommend magnesium citrate from above with lactulose or mineral oil enemas from below. I do not feel that she will need more than 1 or 2 enemas and then she should get movement/disimpaction. I would consider adding Linzess 290 mcg p.o. every morning to her regimen. I would recommend full diagnostic colonoscopy as an outpatient and follow-up in the GI clinic in [place] ([facility]). -will dc today and pt will return sunday for colonoscopy by sonu. script for linzess but do not take until discussed with pcp pt states she has had multiple bms. Objective Vital signs: Temp Pulse Resp BP Pulse Ox 97.9 F 94 H 20 129/49 L 99 03/01/19 07:52 03/01/19 07:52 03/01/19 07:52 03/01/19 07:52 03/01/19 07:52 no acute distress - *Routine HEENT Exam Head: Present: normocephalic Eye: Present: PERRL ENT: Present: mucous membranes moist - *Routine Respiratory Exam Present: CTA bilaterally - *Routine Cardiovascular Exam Present: RRR - *Routine Abdominal Exam Present: soft, normoactive bowel sounds. Absent: distended, rebound, guarding - *Routine Extremities Exam Present: full ROM - *Routine Skin Exam Present: intact - *Routine Neurological Exam Present: alert, oriented X3 - Routine Psychiatric Exam Present: normal affect Results - Additional Comments discussed pt with Dr Zeng, orders per azucena zeng will see pt later Discharge Plan - Patient Discharge Instructions ACTIVITY: Continue current activity DIET: continue same diet Additional Instructions: Check in at 1:30 on Sunday03/03/19 at [facility]. Procedure will start at 2:30. 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 Patient Instructions: Constipation - Follow up Plan Follow up with: Fawn Mcclendon APRN [Nurse Practitioner] - 03/24/19 12:45 pm (@ [facility]) Disposition: Home, Self-[facility] Medications: Home Medications Medication Instructions Recorded Confirmed Type albuterol sulfate HFA 90 2 puff INHALATION Q6HP PRN 09/13/18 02/26/19 History mcg/actuation aerosol inhaler fluticasone fur. 100 mcg-umeclid 1 puff INHALATION DAILY 09/13/18 02/26/19 History 62.5 mcg-vilant 25 mcg inhalat.powder hydroxyzine HCl 25 mg tablet 25 mg PO TIDP PRN 09/13/18 02/26/19 History levothyroxine 75 mcg capsule 75 mcg PO DAILY 09/13/18 02/26/19 History linaclotide 290 mcg capsule 290 mcg PO DAILY 09/13/18 02/26/19 History omeprazole 20 mg capsule,delayed 20 mg PO DAILY 09/13/18 02/26/19 History release roflumilast 500 mcg tablet 500 mcg PO DAILY 09/13/18 02/26/19 History Escitalopram Oxalate [Lexapro] 10 mg PO DAILY 02/26/19 02/26/19 History Levalbuterol HCl [Xopenex 1.25 mg IH TID 02/26/19 02/26/19 History 1.25mg/3mL neb] Potassium Chloride [Klor-Con 10mEq 10 meq PO BID 02/26/19 02/26/19 History tab] predniSONE [Prednisone 10mg Tab 10 mg PO DAILY 02/26/19 02/26/19 History Dose-Pack] Linaclotide [Linzess] 290 mcg PO DAILY 30 Days #30 cap 03/01/19 Rx Prescriptions/Medication Reconciliation: New Linaclotide [Linzess] 290 mcg PO DAILY 30 Days #30 cap Continued albuterol sulfate HFA 90 mcg/actuation aerosol inhaler 2 puff INHALATION Q6HP PRN PRN Reason: Wheezing hydroxyzine HCl 25 mg tablet 25 mg PO TIDP PRN PRN Reason: Itching levothyroxine 75 mcg capsule 75 mcg PO DAILY linaclotide 290 mcg capsule 290 mcg PO DAILY omeprazole 20 mg capsule,delayed release 20 mg PO DAILY fluticasone fur. 100 mcg-umeclid 62.5 mcg-vilant 25 mcg inhalat.powder 1 puff INHALATION DAILY roflumilast 500 mcg tablet 500 mcg PO DAILY predniSONE [Prednisone 10mg Tab Dose-Pack] 10 mg PO DAILY Potassium Chloride [Klor-Con 10mEq tab] 10 meq PO BID Levalbuterol HCl [Xopenex 1.25mg/3mL neb] 1.25 mg IH TID Escitalopram Oxalate [Lexapro] 10 mg PO DAILY - Problem Reconciliation Problems Reviewed?: Yes
--- NOTE | 2019-03-01 11:53 | Progress Note ---
Subjective Narrative: Ms. Oates is a 78-year-old female with admission for constipation and possible colitis. Feeling well this morning. No new complaints. Plan at this time is proceed with discharge and follow with outpatient colonoscopy on March 03, 2019. Exam Vital signs and Labs for Last 24 Hours: Temp Pulse Resp BP Pulse Ox 97.9 F 94 H 20 129/49 L 99 03/01/19 07:52 03/01/19 07:52 03/01/19 07:52 03/01/19 07:52 03/01/19 07:52 I & O for Last 24 hours: Intake & Output 02/26/19 02/27/19 02/28/19 03/01/19 11:59 11:59 11:59 11:59 Intake Total 150 / 150 2510 / 2510 1136 / 1136 Output Total 900 / 900 Balance 150 / 150 2510 / 2510 236 / 236 Weight 70.392 kg 74.899 kg 74.616 kg - Constitutional no acute distress - *Routine Abdominal Exam Present: soft Progress Note: A&P Assessment and Plan for All Diagnoses:: Constipation. Plan for outpatient colonoscopy. Prep provided.
== END 2019-03-01 12:26 | disposition home or self-care (01) ==
LOC: ER 13:31 → 2ND 13:31
PROVIDERS: ADMIT Emergency Medicine; ATTEND Emergency Medicine
DX: J44.9 Chronic obstructive pulmonary disease, unspecified; Z99.81 Dependence on supplemental oxygen; I25.10 Atherosclerotic heart disease of native coronary artery without angina pectoris; Z87.891 Personal history of nicotine dependence; K57.30 Diverticulosis of large intestine without perforation or abscess without bleeding; K56.41 Fecal impaction
CPT/HCPCS: 36415; 74177; 80048; 80053; 81001; 83605; 85007; 85025; 85651; 86140; 94640; 94761; 96365; 96367; 96372; 99284; G0378; J1335; J2405; Q9967

== ENCOUNTER → 2019-04-22 13:11 | Outpatient (POV) | payer MEDICARE, SELFPAY | PROVIDERS: Visit Provider Internal Medicine | DX: Z00.00 Encounter for general adult medical examination without abnormal findings (principal) ==